=== PATIENT | male | born 1935 | race Caucasian/White ===

== ENCOUNTER 2020-01-25 06:49 | Outpatient (REF) | payer MEDICARE, SELFPAY ==
[2020-01-25 11:58] LABS: Prostate Specific Antigen 7.17 ng/mL (<0.05-4.0)
== END 2020-01-25 06:50 | disposition home or self-care (01) ==
LOC: HO.HMGCLDS 06:49
PROVIDERS: PCP Internal Medicine; Visit Provider Urology
DX: Z12.5 Encounter for screening for malignant neoplasm of prostate (principal)
CPT/HCPCS: 84153

== ENCOUNTER 2020-01-31 09:10 | Outpatient (REF) | payer MEDICARE, SELFPAY | END 2020-01-31 09:11 | disposition home or self-care (01) | LOC: HO.10HDL 09:10 | PROVIDERS: Visit Provider Internal Medicine | DX: Z13.89 Encounter for screening for other disorder (principal) ==

== ENCOUNTER 2020-02-08 06:24 | Outpatient (REF) | payer MEDICARE, SELFPAY ==
[2020-02-08 11:24] LABS: MANUAL DIFF FLAG NO
[2020-02-08 11:41] LABS: Basophils Percent Auto 0.5 % (0-2); Eosinophils Absolute Auto 0.2 X10*3/uL (0.0-0.4); Eosinophils Percent Auto 3.8 % (0-4); Hematocrit 41.9 % (42-52); Imm Gran Abs Auto 0.02 X10*3/uL (0.00-0.03); Imm Gran Pct Auto 0.3 % (0.0-0.4); Lymphocytes Absolute Auto 1.7 X10*3/uL (1.2-4.9); Lymphocytes Percent Auto 27.3 % (20-40); Mean Corpuscular HGB Conc 33.4 g/dl (31.0-36.0); Mean Corpuscular Hemoglobin 32.6 pg (27.0-33.0); Mean Corpuscular Volume 97.7 fL (80-98); Mean Platelet Volume 10.7 fL (9.4-12.4); Monocytes Absolute Auto 0.7 X10*3/uL (0.1-1.2); Monocytes Percent Auto 10.6 % (2-11); Neutrophils Absolute Auto 3.5 X10*3/uL (2.0-8.3); Neutrophils Percent Auto 57.5 % (45-73); Platelet Count 245 X10*3/uL (160-400); Red Blood Count 4.29 X10*6/uL (4.60-5.80); Red Cell Distribution Width 12.7 % (11.0-16.0); White Blood Count 6.1 X10*3/uL (4.8-10.8)
[2020-02-08 12:12] LABS: Alanine Aminotransferase 22 U/L (0-40); Alkaline Phosphatase 77 U/L (39-117); Anion Gap 14 (12-20); Aspartate Amino Transferase 24 U/L (5-37); Bilirubin Total 0.7 mg/dL (0.0-1.0); Blood Urea Nitrogen 33 mg/dL (9-16); Calcium 8.2 mg/dL (8.4-10.2); Carbon Dioxide 24 mmol/L (22-29); Chloride 109 mmol/L (96-108); Cholesterol 176 mg/dL; Estimated Glomerular Filt Rate 50; Glucose Fasting 118 mg/dL (60-99); HDL Cholesterol 64 mg/dL; LDL Cholesterol Calculated 97 mg/dl; Potassium 4.2 mmol/l (3.3-5.1); Sodium 143 mmol/L (135-145); Total Protein 6.6 g/dL (6.5-8.0); Triglycerides 76 mg/dL
[2020-02-08 12:49] LABS: Prostate Specific Antigen Scr 4.92 ng/mL (<0.05-4.0)
[2020-02-08 12:56] LABS: Creatinine Urine 106.84 mg/dL; Microalbum/Creatinine Ratio Ur 37.4 ug/mg cr
[2020-02-08 17:46] LABS: Estimated Average Glucose 120 mg/dL; Hemoglobin A1c % 5.8 %
== END 2020-02-08 06:25 | disposition home or self-care (01) ==
LOC: HO.HMGCLDS 06:24
PROVIDERS: PCP Internal Medicine; Visit Provider Internal Medicine
DX: E11.9 Type 2 diabetes mellitus without complications (principal); R97.20 Elevated prostate specific antigen [PSA]; I10 Essential (primary) hypertension; E78.00 Pure hypercholesterolemia, unspecified
CPT/HCPCS: 36415; 80053; 80061; 82043; 83036; 84153; 85025

== ENCOUNTER 2020-06-11 10:51 | Outpatient (REF) | payer MEDICARE, SELFPAY ==
[2020-06-11 13:16] LABS: Anion Gap 12 (12-20); Blood Urea Nitrogen 35 mg/dL (9-16); Calcium 8.8 mg/dL (8.4-10.2); Carbon Dioxide 26 mmol/L (22-29); Chloride 110 mmol/L (96-108); Estimated Glomerular Filt Rate 56; Glucose Random 101 mg/dL (60-115); Potassium 4.4 mmol/L (3.3-5.1); Sodium 144 mmol/L (135-145)
[2020-06-11 14:13] LABS: Estimated Average Glucose 123 mg/dL; Hemoglobin A1c % 5.9 %
== END 2020-06-11 10:52 | disposition home or self-care (01) ==
LOC: HO.10HDL 10:51
PROVIDERS: Visit Provider Internal Medicine
DX: E11.22 Type 2 diabetes mellitus with diabetic chronic kidney disease (principal); I12.9 Hypertensive chronic kidney disease with stage 1 through stage 4 chronic kidney disease, or unspecified chronic kidney disease; N18.9 Chronic kidney disease, unspecified
CPT/HCPCS: 36415; 80048; 83036

== ENCOUNTER 2020-08-12 15:38 | Outpatient (REF) | payer MEDICARE, SELFPAY ==
--- NOTE | ~2020-08-12 | XR_ITS ---
EXAMINATION: XR ABDOMEN KUB CLINICAL INDICATION: Constipation and bloating COMPARISON: None TECHNIQUE: AP view of the abdomen. FINDINGS: There is a large soft tissue lesion in the pelvis and central lower abdomen. It is uncertain whether this represents a very distended bladder or could represent a pelvic mass. There is stool seen in the colon suggestive of constipation. There are no dilated loops of bowel to suggest obstruction. There is no evidence of free air. There are degenerative changes of the lower lumbar spine and hip joints. XR/XR KUB IMPRESSION: Large pelvic lesion extending into the lower central abdomen uncertain whether this represents a very distended bladder or could represent a pelvic mass. Constipation. Findings will be communicated by the [employer] work [employer] scouting coordinator Armani Mejia.
[2020-08-12 16:34] LABS: MANUAL DIFF FLAG NO
[2020-08-12 16:41] LABS: Basophils Percent Auto 0.4 % (0-2); Eosinophils Absolute Auto 0.1 X10*3/uL (0.0-0.4); Hematocrit 39.3 % (42-52); Hemoglobin 13.2 g/dl (14.0-18.0); Imm Gran Abs Auto 0.02 X10*3/uL (0.00-0.03); Imm Gran Pct Auto 0.2 % (0.0-0.4); Lymphocytes Absolute Auto 1.2 X10*3/uL (1.2-4.9); Lymphocytes Percent Auto 11.4 % (20-40); Mean Corpuscular HGB Conc 33.6 g/dl (31.0-36.0); Mean Corpuscular Hemoglobin 32.7 pg (27.0-33.0); Mean Corpuscular Volume 97.3 fL (80-98); Mean Platelet Volume 10.4 fL (9.4-12.4); Monocytes Absolute Auto 1.3 X10*3/uL (0.1-1.2); Monocytes Percent Auto 13.2 % (2-11); Neutrophils Absolute Auto 7.5 X10*3/uL (2.0-8.3); Neutrophils Percent Auto 73.8 % (45-73); Platelet Count 206 X10*3/uL (160-400); Red Blood Count 4.04 X10*6/uL (4.60-5.80); Red Cell Distribution Width 12.9 % (11.0-16.0); White Blood Count 10.1 X10*3/uL (4.8-10.8)
[2020-08-12 17:04] LABS: Alanine Aminotransferase 16 U/L (0-40); Albumin Level 4.1 g/dL (3.5-5.0); Alkaline Phosphatase 70 U/L (39-117); Anion Gap 15 (12-20); Aspartate Amino Transferase 18 U/L (5-37); Bilirubin Total 0.9 mg/dL (0.0-1.0); Blood Urea Nitrogen 35 mg/dL (9-16); C Reactive Protein 7.42 mg/dL (< or = 0.50); Carbon Dioxide 24 mmol/L (22-29); Chloride 109 mmol/L (96-108); Estimated Glomerular Filt Rate 46; Glucose Random 155 mg/dL (60-115); Potassium 3.8 mmol/L (3.3-5.1); Sodium 144 mmol/L (135-145); Total Protein 6.8 g/dL (6.5-8.0)
== END 2020-08-12 15:39 | disposition home or self-care (01) ==
LOC: HO.LAB 15:38
PROVIDERS: PCP Internal Medicine; Visit Provider Internal Medicine
DX: K59.00 Constipation, unspecified (principal); R14.0 Abdominal distension (gaseous)
CPT/HCPCS: 36415; 74018; 80053; 85025; 86140

== ENCOUNTER → 2020-08-13 14:00 | Outpatient (BNVA) | payer MEDICARE, SELFPAY | PROVIDERS: PCP Internal Medicine | DX: R33.9 Retention of urine, unspecified (principal); C61 Malignant neoplasm of prostate | CPT/HCPCS: 51701; 51798; 99202; 99212 ==

== ENCOUNTER → 2020-08-28 12:59 | Outpatient (BNVA) | payer MEDICARE, SELFPAY | PROVIDERS: PCP Internal Medicine; Visit Provider Urology | DX: R33.9 Retention of urine, unspecified (principal) | CPT/HCPCS: 51700; 51702; 51798; 99212 ==

== ENCOUNTER 2020-09-13 08:44 | Outpatient (REF) | payer MEDICARE, SELFPAY ==
[2020-09-13 10:11] LABS: MANUAL DIFF FLAG NO
[2020-09-13 10:18] LABS: Basophils Percent Auto 0.5 % (0-2); Eosinophils Absolute Auto 0.1 X10*3/uL (0.0-0.4); Eosinophils Percent Auto 1.8 % (0-4); Hematocrit 39.6 % (42-52); Hemoglobin 13.2 g/dl (14.0-18.0); Imm Gran Abs Auto 0.03 X10*3/uL (0.00-0.03); Imm Gran Pct Auto 0.4 % (0.0-0.4); Lymphocytes Absolute Auto 1.8 X10*3/uL (1.2-4.9); Lymphocytes Percent Auto 23.2 % (20-40); Mean Corpuscular HGB Conc 33.3 g/dl (31.0-36.0); Mean Corpuscular Hemoglobin 32.6 pg (27.0-33.0); Mean Corpuscular Volume 97.8 fL (80-98); Mean Platelet Volume 10.3 fL (9.4-12.4); Monocytes Absolute Auto 0.7 X10*3/uL (0.1-1.2); Monocytes Percent Auto 8.5 % (2-11); Neutrophils Absolute Auto 5.2 X10*3/uL (2.0-8.3); Neutrophils Percent Auto 65.6 % (45-73); Platelet Count 251 X10*3/uL (160-400); Red Blood Count 4.05 X10*6/uL (4.60-5.80); Red Cell Distribution Width 12.4 % (11.0-16.0); White Blood Count 7.9 X10*3/uL (4.8-10.8)
[2020-09-13 10:35] LABS: Anion Gap 12 (12-20); Blood Urea Nitrogen 28 mg/dL (9-16); Calcium 8.4 mg/dL (8.4-10.2); Carbon Dioxide 26 mmol/L (22-29); Chloride 109 mmol/L (96-108); Estimated Glomerular Filt Rate 59; Glucose Random 90 mg/dL (60-115); Iron 93 mcg/dL (45-160); Percent Iron Saturation 30 % (15-50); Potassium 4.1 mmol/L (3.3-5.1); Sodium 143 mmol/L (135-145); Total Iron Binding Capacity 309 mcg/dL (228-428); Unsaturated Iron Binding 216 ug/dL
[2020-09-13 10:44] LABS: Estimated Average Glucose 128 mg/dL; Hemoglobin A1c % 6.1 %
== END 2020-09-13 08:45 | disposition home or self-care (01) ==
LOC: HO.10HDL 08:44
PROVIDERS: Visit Provider Internal Medicine
DX: E11.22 Type 2 diabetes mellitus with diabetic chronic kidney disease (principal); I12.9 Hypertensive chronic kidney disease with stage 1 through stage 4 chronic kidney disease, or unspecified chronic kidney disease; N18.9 Chronic kidney disease, unspecified; D64.9 Anemia, unspecified
CPT/HCPCS: 36415; 80048; 83036; 83540; 85025

== ENCOUNTER → 2020-10-04 08:57 | Outpatient (BNVA) | payer MEDICARE, SELFPAY | PROVIDERS: PCP Internal Medicine; Visit Provider Urology | DX: R33.9 Retention of urine, unspecified (principal); N31.9 Neuromuscular dysfunction of bladder, unspecified; E08.40 Diabetes mellitus due to underlying condition with diabetic neuropathy, unspecified | CPT/HCPCS: 51702; 52000; 99212 ==

== ENCOUNTER → 2020-11-08 08:46 | Outpatient (BNVA) | payer MEDICARE, SELFPAY | PROVIDERS: PCP Internal Medicine; Visit Provider Urology | DX: N31.9 Neuromuscular dysfunction of bladder, unspecified (principal); E08.40 Diabetes mellitus due to underlying condition with diabetic neuropathy, unspecified | CPT/HCPCS: 51701; 51702; 99212 ==

== ENCOUNTER → 2020-12-12 09:47 | Outpatient (BNVA) | payer MEDICARE, SELFPAY | PROVIDERS: PCP Internal Medicine; Visit Provider Urology | DX: N31.9 Neuromuscular dysfunction of bladder, unspecified (principal); E08.40 Diabetes mellitus due to underlying condition with diabetic neuropathy, unspecified | CPT/HCPCS: 51701; 51702; 99212 ==

== ENCOUNTER 2020-12-19 06:07 | Outpatient (REF) | payer MEDICARE, SELFPAY ==
[2020-12-19 11:15] LABS: MANUAL DIFF FLAG NO
[2020-12-19 11:39] LABS: Basophils Percent Auto 0.4 % (0-2); Eosinophils Absolute Auto 0.3 X10*3/uL (0.0-0.4); Eosinophils Percent Auto 4.6 % (0-4); Estimated Average Glucose 120 mg/dL; Hematocrit 41.1 % (42-52); Hemoglobin 13.8 g/dl (14.0-18.0); Hemoglobin A1c % 5.8 %; Imm Gran Abs Auto 0.02 X10*3/uL (0.00-0.03); Imm Gran Pct Auto 0.4 % (0.0-0.4); Lymphocytes Absolute Auto 1.2 X10*3/uL (1.2-4.9); Lymphocytes Percent Auto 22.8 % (20-40); Mean Corpuscular HGB Conc 33.6 g/dl (31.0-36.0); Mean Corpuscular Hemoglobin 32.3 pg (27.0-33.0); Mean Corpuscular Volume 96.3 fL (80-98); Mean Platelet Volume 10.8 fL (9.4-12.4); Monocytes Absolute Auto 0.6 X10*3/uL (0.1-1.2); Monocytes Percent Auto 10.4 % (2-11); Neutrophils Absolute Auto 3.3 X10*3/uL (2.0-8.3); Neutrophils Percent Auto 61.4 % (45-73); Platelet Count 193 X10*3/uL (160-400); Red Blood Count 4.27 X10*6/uL (4.60-5.80); Red Cell Distribution Width 12.6 % (11.0-16.0); White Blood Count 5.4 X10*3/uL (4.8-10.8)
[2020-12-19 11:58] LABS: Alanine Aminotransferase 17 U/L (0-40); Alkaline Phosphatase 84 U/L (39-117); Anion Gap 11 (12-20); Aspartate Amino Transferase 18 U/L (5-37); Bilirubin Total 0.6 mg/dL (0.0-1.0); Blood Urea Nitrogen 30 mg/dL (9-16); Calcium 8.4 mg/dL (8.4-10.2); Carbon Dioxide 24 mmol/L (22-29); Chloride 111 mmol/L (96-108); Cholesterol 157 mg/dL; Estimated Glomerular Filt Rate 53; Glucose Fasting 122 mg/dL (60-99); HDL Cholesterol 60 mg/dL; Iron 47 mcg/dL (45-160); LDL Cholesterol Calculated 86 mg/dl; Percent Iron Saturation 16 % (15-50); Potassium 4.2 mmol/L (3.3-5.1); Sodium 142 mmol/L (135-145); Total Iron Binding Capacity 294 mcg/dL (228-428); Total Protein 6.5 g/dL (6.5-8.0); Triglycerides 58 mg/dL; Unsaturated Iron Binding 247 ug/dL
[2020-12-19 12:30] LABS: Creatinine Urine 103.36 mg/dL; Microalbum/Creatinine Ratio Ur 125.7 ug/mg cr
== END 2020-12-19 06:08 | disposition home or self-care (01) ==
LOC: HO.HMGCLDS 06:07
PROVIDERS: PCP Internal Medicine; Visit Provider Internal Medicine
DX: Z12.5 Encounter for screening for malignant neoplasm of prostate (principal); E11.9 Type 2 diabetes mellitus without complications; N40.1 Benign prostatic hyperplasia with lower urinary tract symptoms; E78.00 Pure hypercholesterolemia, unspecified; I10 Essential (primary) hypertension; D64.9 Anemia, unspecified
CPT/HCPCS: 36415; 80053; 80061; 82043; 83036; 83540; 84153; 85025

== ENCOUNTER → 2021-01-14 09:50 | Outpatient (BNVA) | payer MEDICARE, SELFPAY | PROVIDERS: PCP Internal Medicine; Visit Provider Urology | DX: N31.9 Neuromuscular dysfunction of bladder, unspecified (principal); E08.40 Diabetes mellitus due to underlying condition with diabetic neuropathy, unspecified | CPT/HCPCS: 51701; 51702; 51705; 99212 ==

== ENCOUNTER → 2021-02-14 08:46 | Outpatient (BNVA) | payer MEDICARE, SELFPAY | PROVIDERS: PCP Internal Medicine; Visit Provider Urology | DX: R33.9 Retention of urine, unspecified (principal) | CPT/HCPCS: 51700; 51798 ==

== ENCOUNTER 2021-03-18 10:30 | Outpatient (REF) | payer MEDICARE, SELFPAY ==
[2021-03-18 13:46] LABS: MANUAL DIFF FLAG NO
[2021-03-18 13:56] LABS: Basophils Percent Auto 0.5 % (0-2); Eosinophils Absolute Auto 0.2 X10*3/uL (0.0-0.4); Eosinophils Percent Auto 2.9 % (0-4); Hematocrit 40.8 % (42.0-52.0); Hemoglobin 13.6 g/dl (14.0-18.0); Imm Gran Abs Auto 0.01 X10*3/uL (0.00-0.03); Imm Gran Pct Auto 0.2 % (0.0-0.4); Lymphocytes Absolute Auto 1.5 X10*3/uL (1.2-4.9); Lymphocytes Percent Auto 25.6 % (20-40); Mean Corpuscular HGB Conc 33.3 g/dl (31.0-36.0); Mean Corpuscular Hemoglobin 32.2 pg (27.0-33.0); Mean Corpuscular Volume 96.5 fL (80.0-98.0); Mean Platelet Volume 10.5 fL (9.4-12.4); Monocytes Absolute Auto 0.7 X10*3/uL (0.1-1.2); Monocytes Percent Auto 11.1 % (2-11); Neutrophils Absolute Auto 3.5 x10*3/uL (2.0-8.3); Neutrophils Percent Auto 59.7 % (45-73); Platelet Count 250 X10*3/uL (160-400); Red Blood Count 4.23 X10*6/uL (4.60-5.80); Red Cell Distribution Width 12.6 % (11.0-16.0); White Blood Count 5.9 X10*3/uL (4.8-10.8)
[2021-03-18 14:04] LABS: Estimated Average Glucose 120 mg/dL; Hemoglobin A1c % 5.8 %
[2021-03-18 14:18] LABS: Anion Gap 12 (12-20); Blood Urea Nitrogen 26 mg/dL (9-16); Calcium 8.8 mg/dL (8.4-10.2); Carbon Dioxide 25 mmol/L (22-29); Chloride 109 mmol/L (96-108); Estimated Glomerular Filt Rate 58; Glucose Random 99 mg/dL (60-115); Potassium 4.1 mmol/L (3.3-5.1); Sodium 142 mmol/L (135-145)
== END 2021-03-18 10:31 | disposition home or self-care (01) ==
LOC: HO.10HDL 10:30
PROVIDERS: Visit Provider Internal Medicine
DX: I12.9 Hypertensive chronic kidney disease with stage 1 through stage 4 chronic kidney disease, or unspecified chronic kidney disease (principal); N18.9 Chronic kidney disease, unspecified; E11.22 Type 2 diabetes mellitus with diabetic chronic kidney disease
CPT/HCPCS: 36415; 80048; 83036; 85025

== ENCOUNTER → 2021-08-07 09:00 | Outpatient (BNVA) | payer MEDICARE, SELFPAY | PROVIDERS: PCP Internal Medicine; Visit Provider Urology | DX: R33.9 Retention of urine, unspecified (principal); E08.40 Diabetes mellitus due to underlying condition with diabetic neuropathy, unspecified | CPT/HCPCS: 99212 ==

== ENCOUNTER 2021-08-20 17:48 | Outpatient (REF) | payer MEDICARE, SELFPAY | END 2021-08-20 17:49 | disposition home or self-care (01) | LOC: HO.LNP 17:48 | PROVIDERS: Visit Provider Internal Medicine | DX: L02.214 Cutaneous abscess of groin (principal) | CPT/HCPCS: 87071; 87147; 87205 ==

== ENCOUNTER 2021-11-13 11:44 | Outpatient (REF) | payer MEDICARE, SELFPAY ==
[2021-11-13 13:41] LABS: MANUAL DIFF FLAG NO
[2021-11-13 13:43] LABS: Basophils Percent Auto 0.3 % (0-2); Eosinophils Absolute Auto 0.2 X10*3/uL (0.0-0.4); Eosinophils Percent Auto 3.3 % (0-4); Hematocrit 39.3 % (42.0-52.0); Hemoglobin 13.1 g/dl (14.0-18.0); Imm Gran Abs Auto 0.01 X10*3/uL (0.00-0.03); Imm Gran Pct Auto 0.2 % (0.0-0.4); Lymphocytes Absolute Auto 1.3 X10*3/uL (1.2-4.9); Lymphocytes Percent Auto 23.3 % (20-40); Mean Corpuscular HGB Conc 33.3 g/dl (31.0-36.0); Mean Corpuscular Hemoglobin 31.9 pg (27.0-33.0); Mean Corpuscular Volume 95.6 fL (80.0-98.0); Mean Platelet Volume 10.8 fL (9.4-12.4); Monocytes Absolute Auto 0.6 X10*3/uL (0.1-1.2); Monocytes Percent Auto 10.5 % (2-11); Neutrophils Absolute Auto 3.6 x10*3/uL (2.0-8.3); Neutrophils Percent Auto 62.4 % (45-73); Platelet Count 216 X10*3/uL (160-400); Red Blood Count 4.11 X10*6/uL (4.60-5.80); Red Cell Distribution Width 12.2 % (11.0-16.0); White Blood Count 5.7 X10*3/uL (4.8-10.8)
[2021-11-13 13:59] LABS: Alanine Aminotransferase 16 U/L (0-40); Albumin Level 4.1 g/dL (3.5-5.0); Alkaline Phosphatase 80 U/L (39-117); Anion Gap 14 (12-20); Aspartate Amino Transferase 19 U/L (5-37); Bilirubin Total 0.5 mg/dL (0.0-1.0); Blood Urea Nitrogen 33 mg/dL (9-16); Calcium 8.7 mg/dL (8.4-10.2); Carbon Dioxide 24 mmol/L (22-29); Chloride 109 mmol/L (96-108); Estimated Glomerular Filt Rate 47; Glucose Random 97 mg/dL (60-115); Iron 118 mcg/dL (45-160); Percent Iron Saturation 36 % (15-50); Potassium 4.4 mmol/L (3.3-5.1); Sodium 143 mmol/L (135-145); Total Iron Binding Capacity 328 mcg/dL (228-428); Total Protein 6.9 g/dL (6.5-8.0); Unsaturated Iron Binding 210 ug/dL
[2021-11-13 14:02] LABS: Estimated Average Glucose 117 mg/dL; Hemoglobin A1c % 5.7 %
== END 2021-11-13 11:45 | disposition home or self-care (01) ==
LOC: HO.10HDL 11:44
PROVIDERS: Visit Provider Internal Medicine
DX: I12.9 Hypertensive chronic kidney disease with stage 1 through stage 4 chronic kidney disease, or unspecified chronic kidney disease (principal); N18.9 Chronic kidney disease, unspecified; E11.22 Type 2 diabetes mellitus with diabetic chronic kidney disease; D64.9 Anemia, unspecified
CPT/HCPCS: 36415; 80053; 83036; 83540; 85025

== ENCOUNTER 2022-01-29 06:12 | Outpatient (REF) | payer MEDICARE, SELFPAY ==
[2022-01-29 11:12] LABS: MANUAL DIFF FLAG NO
[2022-01-29 11:31] LABS: Alanine Aminotransferase 18 U/L (0-40); Albumin Level 4.2 g/dL (3.5-5.0); Alkaline Phosphatase 76 U/L (39-117); Anion Gap 14 (12-20); Aspartate Amino Transferase 20 U/L (5-37); Bilirubin Total 0.7 mg/dL (0.0-1.0); Blood Urea Nitrogen 36 mg/dL (9-16); Calcium 8.8 mg/dL (8.4-10.2); Carbon Dioxide 21 mmol/L (22-29); Chloride 112 mmol/L (96-108); Estimated Glomerular Filt Rate 39; Glucose Random 129 mg/dL (60-115); Iron 134 mcg/dL (45-160); Percent Iron Saturation 41 % (15-50); Potassium 4.2 mmol/L (3.3-5.1); Sodium 143 mmol/L (135-145); Total Iron Binding Capacity 328 mcg/dL (228-428); Total Protein 6.8 g/dL (6.5-8.0); Unsaturated Iron Binding 194 ug/dL
[2022-01-29 11:43] LABS: Basophils Percent Auto 0.5 % (0-2); Eosinophils Absolute Auto 0.2 X10*3/uL (0.0-0.4); Eosinophils Percent Auto 4.2 % (0-4); Hematocrit 41.4 % (42.0-52.0); Imm Gran Abs Auto 0.01 X10*3/uL (0.00-0.03); Imm Gran Pct Auto 0.2 % (0.0-0.4); Lymphocytes Absolute Auto 1.6 X10*3/uL (1.2-4.9); Lymphocytes Percent Auto 27.3 % (20-40); Mean Corpuscular HGB Conc 33.8 g/dl (31.0-36.0); Mean Corpuscular Hemoglobin 32.2 pg (27.0-33.0); Mean Corpuscular Volume 95.2 fL (80.0-98.0); Mean Platelet Volume 10.8 fL (9.4-12.4); Monocytes Absolute Auto 0.6 X10*3/uL (0.1-1.2); Monocytes Percent Auto 10.3 % (2-11); Neutrophils Absolute Auto 3.3 x10*3/uL (2.0-8.3); Neutrophils Percent Auto 57.5 % (45-73); Platelet Count 198 X10*3/uL (160-400); Red Blood Count 4.35 X10*6/uL (4.60-5.80); Red Cell Distribution Width 12.6 % (11.0-16.0); White Blood Count 5.8 X10*3/uL (4.8-10.8)
== END 2022-01-29 06:13 | disposition home or self-care (01) ==
LOC: HO.HMGCLDS 06:12
PROVIDERS: PCP Internal Medicine; Visit Provider Internal Medicine
DX: I12.9 Hypertensive chronic kidney disease with stage 1 through stage 4 chronic kidney disease, or unspecified chronic kidney disease (principal); N18.9 Chronic kidney disease, unspecified; D64.9 Anemia, unspecified
CPT/HCPCS: 36415; 80053; 83540; 85025

== ENCOUNTER → 2022-02-05 09:03 | Outpatient (BNVA) | payer MEDICARE, SELFPAY | PROVIDERS: PCP Internal Medicine; Visit Provider Urology | DX: N31.9 Neuromuscular dysfunction of bladder, unspecified (principal); E08.40 Diabetes mellitus due to underlying condition with diabetic neuropathy, unspecified | CPT/HCPCS: 51798; 99212 ==

== ENCOUNTER 2022-02-10 06:57 | Outpatient (REF) | payer MEDICARE, SELFPAY ==
[2022-02-10 12:20] LABS: Anion Gap 15 (12-20); Blood Urea Nitrogen 30 mg/dL (9-16); Calcium 8.5 mg/dL (8.4-10.2); Carbon Dioxide 25 mmol/L (22-29); Chloride 107 mmol/L (96-108); Estimated Glomerular Filt Rate 46; Glucose Random 219 mg/dL (60-115); Potassium 3.9 mmol/L (3.3-5.1); Sodium 143 mmol/L (135-145)
== END 2022-02-10 06:58 | disposition home or self-care (01) ==
LOC: HO.HMGCLDS 06:57
PROVIDERS: PCP Internal Medicine; Visit Provider Internal Medicine
DX: N18.9 Chronic kidney disease, unspecified (principal)
CPT/HCPCS: 36415; 80048

== ENCOUNTER 2022-03-12 06:01 | Outpatient (REF) | payer MEDICARE, SELFPAY ==
[2022-03-12 11:23] LABS: MANUAL DIFF FLAG NO
[2022-03-12 11:41] LABS: Basophils Percent Auto 0.7 % (0-2); Eosinophils Absolute Auto 0.3 X10*3/uL (0.0-0.4); Eosinophils Percent Auto 4.8 % (0-4); Hematocrit 42.6 % (42.0-52.0); Hemoglobin 13.9 g/dl (14.0-18.0); Imm Gran Abs Auto 0.01 X10*3/uL (0.00-0.03); Imm Gran Pct Auto 0.2 % (0.0-0.4); Lymphocytes Absolute Auto 1.4 X10*3/uL (1.2-4.9); Lymphocytes Percent Auto 24.4 % (20-40); Mean Corpuscular HGB Conc 32.6 g/dl (31.0-36.0); Mean Corpuscular Hemoglobin 31.7 pg (27.0-33.0); Mean Corpuscular Volume 97.3 fL (80.0-98.0); Mean Platelet Volume 10.5 fL (9.4-12.4); Monocytes Absolute Auto 0.6 X10*3/uL (0.1-1.2); Monocytes Percent Auto 10.1 % (2-11); Neutrophils Absolute Auto 3.5 x10*3/uL (2.0-8.3); Neutrophils Percent Auto 59.8 % (45-73); Platelet Count 241 X10*3/uL (160-400); Red Blood Count 4.38 X10*6/uL (4.60-5.80); Red Cell Distribution Width 12.5 % (11.0-16.0); White Blood Count 5.8 X10*3/uL (4.8-10.8)
[2022-03-12 12:07] LABS: Alanine Aminotransferase 24 U/L (0-40); Alkaline Phosphatase 78 U/L (39-117); Anion Gap 12 (12-20); Aspartate Amino Transferase 24 U/L (5-37); Bilirubin Total 0.7 mg/dL (0.0-1.0); Blood Urea Nitrogen 30 mg/dL (9-16); Calcium 8.8 mg/dL (8.4-10.2); Carbon Dioxide 26 mmol/L (22-29); Chloride 110 mmol/L (96-108); Cholesterol 168 mg/dL; Estimated Glomerular Filt Rate 41; Glucose Fasting 150 mg/dL (60-99); HDL Cholesterol 55 mg/dL; LDL Cholesterol Calculated 100 mg/dl; Potassium 4.6 mmol/L (3.3-5.1); Sodium 143 mmol/L (135-145); Total Protein 6.5 g/dL (6.5-8.0); Triglycerides 67 mg/dL
[2022-03-12 12:46] LABS: Estimated Average Glucose 120 mg/dL; Hemoglobin A1c % 5.8 %
[2022-03-12 16:04] LABS: Creatinine Urine 103.05 mg/dL; Microalbum/Creatinine Ratio Ur 91.2 ug/mg cr
== END 2022-03-12 06:02 | disposition home or self-care (01) ==
LOC: HO.HMGCLDS 06:01
PROVIDERS: PCP Internal Medicine; Visit Provider Internal Medicine
DX: E11.9 Type 2 diabetes mellitus without complications (principal); I10 Essential (primary) hypertension; E78.00 Pure hypercholesterolemia, unspecified
CPT/HCPCS: 36415; 80053; 80061; 82043; 83036; 85025

== ENCOUNTER 2022-05-14 11:04 | Outpatient (REF) | payer MEDICARE, SELFPAY ==
[2022-05-14 13:59] LABS: Anion Gap 13 (12-20); Blood Urea Nitrogen 30 mg/dL (9-16); Calcium 8.6 mg/dL (8.4-10.2); Carbon Dioxide 25 mmol/L (22-29); Chloride 108 mmol/L (96-108); Estimated Glomerular Filt Rate 51; Glucose Random 104 mg/dL (60-115); Potassium 4.3 mmol/L (3.3-5.1); Sodium 142 mmol/L (135-145)
[2022-05-14 14:14] LABS: Estimated Average Glucose 123 mg/dL; Hemoglobin A1C 151.6046 umol/L; Hemoglobin A1c % 5.9 %
== END 2022-05-14 11:05 | disposition home or self-care (01) ==
LOC: HO.10HDL 11:04
PROVIDERS: Visit Provider Internal Medicine
DX: R73.03 Prediabetes (principal); I12.9 Hypertensive chronic kidney disease with stage 1 through stage 4 chronic kidney disease, or unspecified chronic kidney disease; N18.9 Chronic kidney disease, unspecified
CPT/HCPCS: 36415; 80048; 83036

== ENCOUNTER 2022-08-13 10:41 | Outpatient (REF) | payer MEDICARE, SELFPAY ==
[2022-08-13 13:32] LABS: MANUAL DIFF FLAG NO
[2022-08-13 13:38] LABS: Basophils Percent Auto 0.6 % (0-2); Eosinophils Absolute Auto 0.2 X10*3/uL (0.0-0.4); Eosinophils Percent Auto 3.1 % (0-4); Hematocrit 39.1 % (42.0-52.0); Hemoglobin 13.4 g/dl (14.0-18.0); Imm Gran Abs Auto 0.01 X10*3/uL (0.00-0.03); Imm Gran Pct Auto 0.2 % (0.0-0.4); Lymphocytes Absolute Auto 1.3 X10*3/uL (1.2-4.9); Lymphocytes Percent Auto 25.7 % (20-40); Mean Corpuscular HGB Conc 34.3 g/dl (31.0-36.0); Mean Corpuscular Hemoglobin 32.7 pg (27.0-33.0); Mean Corpuscular Volume 95.4 fL (80.0-98.0); Mean Platelet Volume 10.7 fL (9.4-12.4); Monocytes Absolute Auto 0.6 X10*3/uL (0.1-1.2); Monocytes Percent Auto 12.3 % (2-11); Neutrophils Percent Auto 58.1 % (45-73); Platelet Count 216 X10*3/uL (160-400); Red Cell Distribution Width 12.5 % (11.0-16.0); White Blood Count 5.1 X10*3/uL (4.8-10.8)
[2022-08-13 13:56] LABS: Estimated Average Glucose 120 mg/dL; Hemoglobin A1c % 5.8 %
[2022-08-13 14:10] LABS: Anion Gap 9 (12-20); Blood Urea Nitrogen 35 mg/dL (9-16); Calcium 8.7 mg/dL (8.4-10.2); Carbon Dioxide 24 mmol/L (22-29); Chloride 114 mmol/L (96-108); Estimated Glomerular Filt Rate 53; Glucose Random 99 mg/dL (60-115); Potassium 4.3 mmol/L (3.3-5.1); Sodium 143 mmol/L (135-145)
== END 2022-08-13 10:42 | disposition home or self-care (01) ==
LOC: HO.10HDL 10:41
PROVIDERS: Visit Provider Internal Medicine
DX: R73.03 Prediabetes (principal); I12.9 Hypertensive chronic kidney disease with stage 1 through stage 4 chronic kidney disease, or unspecified chronic kidney disease; N18.9 Chronic kidney disease, unspecified
CPT/HCPCS: 36415; 80048; 83036; 85025

== ENCOUNTER → 2022-08-20 08:35 | Outpatient (BNVA) | payer MEDICARE, SELFPAY | PROVIDERS: PCP Internal Medicine; Visit Provider Urology | DX: N31.9 Neuromuscular dysfunction of bladder, unspecified (principal); E08.40 Diabetes mellitus due to underlying condition with diabetic neuropathy, unspecified | CPT/HCPCS: 51798; 99212 ==

== ENCOUNTER 2023-02-19 07:59 | Outpatient (AMB) | payer MEDICARE, SELFPAY ==
--- NOTE | 2023-02-19 08:26 | A.OFFVIS_ITS ---
Intake Intake Visit Reasons: 6m follow up Intake Note: Patient is Present for Telephone Follow Up For Urology Med: Methenamine, Doxazosin Antibiotic Allergy: None Blood Thinner: none Allergies No Known Allergies Allergy (Verified 08/20/22 08:39) Medication List - Last Reconciled 02/19/23 by Shmuel Friedman MD ascorbic acid (vitamin C) 1 g PO DAILY 90 days doxazosin 2 mg PO DAILY lisinopril 10 mg PO DAILY metformin mg PO methenamine hippurate 1 g PO DAILY 90 days pravastatin 40 mg PO DAILY HPI HPI Comments History of Present Illness Details Yobany is a pleasant male. He is a patient with Dr. Key. 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 Remain on prostate medication Has been taught clean intermittent catheterization - on suppression with methenamine and vi tamin-C [facility] Medical History Nocturia Diabetes mellitus Elevated PSA Prostate cancer Surgical History History of prostate biopsy Review of Systems Const All systems reviewed & are unremarkable except as noted in HPI and below Reports no additional complaints Resp Reports no additional complaints GI Reports no additional complaints Reports as per HPI Musc Reports no additional complaints Physical Exam Telemedicine evaluation Appropriate responses Regular breathing rate and rhythm HEENT Head: Yes normal to inspection Ears: hearing grossly normal bilaterally Eyes General: appearance normal, both eyes and all related structures Neck Neck: Yes normal visual inspection Chest Chest palpation & inspection: normal inspection of the chest Resp Effort & Inspection: normal respiratory effort and able to speak in complete sentences Assessment & Plan Assessment & Plan (1) BPH w urinary obs/LUTS: Code(s): N40.1 - Benign prostatic hyperplasia with lower urinary tract symptoms; N13.8 - Other obstructive and reflux uropathy (2) Hypotonic neurogenic bladder: Code(s): N31.9 - Neuromuscular dysfunction of bladder, unspecified Plan Six month follow-up Medications: Refilled methenamine hippurate 1 g PO DAILY 90 tabs 1RF 90 days N39.0 - Urinary tract infection, site not specified, R33.9 - Retention of urine, unspecified ascorbic acid (vitamin C) 1 g PO DAILY 90 tabs 1RF 90 days Patient Instructions: Imaging studies, laboratory and physical exam results were discussed and re viewed in detail. No major barriers to patient understanding were identified. An opportunity to ask questions regarding the treatment plan was provided. All questions were answered. The patient expressed understanding and agreement with the above treatment plan. The patient is aware they should contact our office by phone for worsening of their current condition or the appearance of new urologic symptoms. Compliance is encouraged with any medications and followup testing that is ordered. It is a privilege to participate in the urologic care of your patient. If you have any questions or concerns regarding treatment for the above conditions, or other urologic issues, please do not hesitate to contact me. The office telephone contact is [phone]. This note is constructed using voice recognition software. While every effort has been made to ensure accuracy design assistant errors may have been included. Yours sincerely, Dr Shmuel Friedman MD, DIPIK[facility] - Urology Providers of Expert, Compassionate Care for the Genitourinary System Telehealth Telehealth Location of provider rendering services: practice address Location of patient: address on file Patient Identification confirmed using: Name, : Yes Telehealth method: video Patient verbally consented to treatment: Yes Patient verbally consented to billing insurance company: Yes Patient informed of any privacy concerns related to visit: Yes Coding Level of Care Code Tele Est Pt Level 3 (77548) Diagnoses BPH w urinary obs/LUTS N40.1; N13.8 Hypotonic neurogenic bladder N31.9
== END 2023-02-19 09:34 | disposition home or self-care (01) ==
LOC: HO.HUSH 07:59
PROVIDERS: PCP Internal Medicine; Visit Provider Urology
DX: N40.1 Benign prostatic hyperplasia with lower urinary tract symptoms (principal); N13.8 Other obstructive and reflux uropathy; N31.9 Neuromuscular dysfunction of bladder, unspecified
CPT/HCPCS: 99213

== ENCOUNTER → 2023-02-19 07:59 | Outpatient (BNVA) | payer MEDICARE, SELFPAY | PROVIDERS: PCP Internal Medicine; Visit Provider Urology ==

== ENCOUNTER 2023-03-04 10:44 | Outpatient (REF) | payer MEDICARE, SELFPAY ==
[2023-03-04 13:18] LABS: MANUAL DIFF FLAG NO
[2023-03-04 13:27] LABS: Basophils Percent Auto 0.8 % (0-2); Eosinophils Absolute Auto 0.1 X10*3/uL (0.0-0.4); Eosinophils Percent Auto 2.4 % (0-4); Hematocrit 39.9 % (42.0-52.0); Hemoglobin 13.2 g/dl (14.0-18.0); Imm Gran Abs Auto 0.01 X10*3/uL (0.00-0.03); Imm Gran Pct Auto 0.2 % (0.0-0.4); Lymphocytes Absolute Auto 1.2 X10*3/uL (1.2-4.9); Lymphocytes Percent Auto 23.7 % (20-40); Mean Corpuscular HGB Conc 33.1 g/dl (31.0-36.0); Mean Corpuscular Hemoglobin 32.3 pg (27.0-33.0); Mean Corpuscular Volume 97.6 fL (80.0-98.0); Mean Platelet Volume 10.6 fL (9.4-12.4); Monocytes Absolute Auto 0.6 X10*3/uL (0.1-1.2); Monocytes Percent Auto 11.1 % (2-11); Neutrophils Absolute Auto 3.1 x10*3/uL (2.0-8.3); Neutrophils Percent Auto 61.8 % (45-73); Platelet Count 207 X10*3/uL (160-400); Red Blood Count 4.09 X10*6/uL (4.60-5.80); Red Cell Distribution Width 12.8 % (11.0-16.0); White Blood Count 5.1 X10*3/uL (4.8-10.8)
[2023-03-04 13:43] LABS: Estimated Average Glucose 117 mg/dL; Hemoglobin A1c % 5.7 % (<6.0)
[2023-03-04 14:04] LABS: Alanine Aminotransferase 23 U/L (0-40); Albumin Level 4.2 g/dL (3.5-5.0); Alkaline Phosphatase 76 U/L (39-117); Anion Gap 10 (12-20); Aspartate Amino Transferase 23 U/L (5-37); Bilirubin Total 0.6 mg/dL (0.0-1.0); Blood Urea Nitrogen 35 mg/dL (9-16); Carbon Dioxide 25 mmol/L (22-29); Chloride 112 mmol/L (96-108); Cholesterol 152 mg/dL (<200); Estimated Glomerular Filt Rate 57; Glucose Random 125 mg/dL (60-115); Potassium 3.9 mmol/L (3.3-5.1); Sodium 143 mmol/L (135-145); Total Protein 7.1 g/dL (6.5-8.0)
== END 2023-03-04 10:45 | disposition home or self-care (01) ==
LOC: HO.10HDL 10:44
PROVIDERS: Visit Provider Internal Medicine
DX: I12.9 Hypertensive chronic kidney disease with stage 1 through stage 4 chronic kidney disease, or unspecified chronic kidney disease (principal); N18.9 Chronic kidney disease, unspecified; R73.03 Prediabetes
CPT/HCPCS: 36415; 80053; 82465; 83036; 85025

== ENCOUNTER 2023-09-09 08:36 | Outpatient (REF) | payer MEDICARE, SELFPAY ==
[2023-09-09 10:22] LABS: MANUAL DIFF FLAG NO
[2023-09-09 10:40] LABS: Basophils Percent Auto 0.5 % (0-2); Eosinophils Absolute Auto 0.2 X10*3/uL (0.0-0.4); Eosinophils Percent Auto 3.2 % (0-4); Hematocrit 38.6 % (42.0-52.0); Hemoglobin 13.2 g/dl (14.0-18.0); Imm Gran Abs Auto 0.01 X10*3/uL (0.00-0.03); Imm Gran Pct Auto 0.2 % (0.0-0.4); Lymphocytes Absolute Auto 1.6 X10*3/uL (1.2-4.9); Lymphocytes Percent Auto 28.4 % (20-40); Mean Corpuscular HGB Conc 34.2 g/dl (31.0-36.0); Mean Corpuscular Hemoglobin 33.4 pg (27.0-33.0); Mean Corpuscular Volume 97.7 fL (80.0-98.0); Mean Platelet Volume 10.9 fL (9.4-12.4); Monocytes Absolute Auto 0.7 X10*3/uL (0.1-1.2); Monocytes Percent Auto 11.5 % (2-11); Neutrophils Absolute Auto 3.2 x10*3/uL (2.0-8.3); Neutrophils Percent Auto 56.2 % (45-73); Platelet Count 202 X10*3/uL (160-400); Red Blood Count 3.95 X10*6/uL (4.60-5.80); Red Cell Distribution Width 12.6 % (11.0-16.0); White Blood Count 5.6 X10*3/uL (4.8-10.8)
[2023-09-09 10:55] LABS: Anion Gap 12 (12-20); Blood Urea Nitrogen 42 mg/dL (9-16); Calcium 8.9 mg/dL (8.4-10.2); Carbon Dioxide 23 mmol/L (22-29); Chloride 113 mmol/L (96-108); Estimated Glomerular Filt Rate 43; Glucose Random 97 mg/dL (60-115); Iron 103 mcg/dL (45-160); Percent Iron Saturation 35 % (15-50); Potassium 4.4 mmol/L (3.3-5.1); Sodium 144 mmol/L (135-145); Total Iron Binding Capacity 293 mcg/dL (228-428); Unsaturated Iron Binding 190 ug/dL
[2023-09-09 10:57] LABS: Estimated Average Glucose 114 mg/dL; Hemoglobin A1c % 5.6 % (<6.0)
== END 2023-09-09 08:37 | disposition home or self-care (01) ==
LOC: HO.HMGCLDS 08:36
PROVIDERS: PCP Internal Medicine; Visit Provider Internal Medicine
DX: I12.9 Hypertensive chronic kidney disease with stage 1 through stage 4 chronic kidney disease, or unspecified chronic kidney disease (principal); E11.22 Type 2 diabetes mellitus with diabetic chronic kidney disease; N18.9 Chronic kidney disease, unspecified
CPT/HCPCS: 36415; 80048; 83036; 83540; 85025

== ENCOUNTER 2023-09-14 10:09 | Outpatient (AMB) | payer MEDICARE, SELFPAY ==
--- NOTE | 2023-09-14 10:13 | MHC.OFFVIS ---
Intake Visit Reasons: 6M PVR Intake Note: Patient is Present for PVR/ Urology Med: Methenamine, Vitamin C Antibiotic Allergy:None Blood Thinner:None Last PVR: 224 Todays PVR: 143ml Allergies No Known Allergies Allergy (Verified 08/20/22 08:39) Medication List - Last Reconciled 09/14/23 by Shmuel Friedman MD ascorbic acid (vitamin C) 1 g PO DAILY 90 days doxazosin 2 mg PO DAILY lisinopril 10 mg PO DAILY metformin mg PO methenamine hippurate 1 g PO DAILY 90 days pravastatin 40 mg PO DAILY HPI Comments Details: Yobany is a pleasant male. He is a patient with Dr. Key. 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 Remain on prostate medication Has been taught clean intermittent catheterization - on suppression with methenamine and vitamin-C PFSH Medical History Nocturia Diabetes mellitus Elevated PSA Prostate cancer Surgical History History of prostate biopsy Review of Systems Const Denies chills and Denies fever(s) Card Reports no additional complaints and Denies syncope Resp Denies cough GI Denies abdominal pain and Denies heartburn Reports as per HPI and Denies change in libido Neuro Denies syncope Psych Denies change in libido Endo Denies change in libido Physical Exam Const General: cooperative, healthy appearing, comfortable and no acute distress Orientation/consciousness: patient oriented x3 HEENT Face and sinus: Yes normal facial exam Mouth: moist mucous membranes Neck Neck: Yes normal visual inspection, Yes full ROM and Yes trachea midline Chest Chest palpation & inspection: normal inspection of the chest Resp Effort & Inspection: normal respiratory effort, able to speak in complete sentences and no respiratory distress GI Inspection: Yes normal to inspection Back/Spine/Pelvis Cervical Spine: normal cervical lordosis Thoracic/Lumbar Spine: thoracic and lumbar spine normal to inspection Skin General skin exam: no rashes or lesions noted Neuro General: patient oriented x3, gait normal, tone normal and moves all extremities Extrem General: Yes normal to inspection and Yes capillary refill normal Office Procedures Post Void Residual Post Residual Void Post Void Residual (PVR): 143 [id number] Void Residual by ultrasound Assessment & Plan Assessment & Plan (1) Hypotonic neurogenic bladder: Code(s): N31.9 - Neuromuscular dysfunction of bladder, unspecified Category: Medical (2) Diabetic neuropathy associated with diabetes mellitus due to underlying condition: Code(s): E08.40 - Diabetes mellitus due to underlying condition with diabetic neuropathy, unspecified Category: Medical Plan Six-month follow-up tele Orders: Orders AMB Post Void Residual by ultrasound Today N31.9 - Neuromuscular dysfunction of bladder, unspecified Patient Instructions: Imaging studies, laboratory and physical exam results were discussed and reviewed in detail. No major barriers to patient understanding were identified. An opportunity to ask questions regarding the treatment plan was provided. All questions were answered. The patient expressed understanding and agreement with the above treatment plan. The patient is aware they should contact our office by phone for worsening of their current condition or the appearance of new urologic symptoms. Compliance is encouraged with any medications and followup testing that is ordered. It is a privilege to participate in the urologic care of your patient. If you have any questions or concerns regarding treatment for the above conditions, or other urologic issues, please do not hesitate to contact me. The office telephone contact is [phone]. This note is constructed using voice recognition software. While every effort has been made to ensure accuracy tenant relations coordinator errors may have been included. Yours sincerely, Dr Shmuel Friedman MD, [facility] - Urology Providers of Expert, Compassionate Care for the Genitourinary System Coding Level of Care Code Est Pt Level 3 (39381) Diagnoses Hypotonic neurogenic bladder N31.9 Diabetic neuropathy associated with diabetes mellitus due to underlying condition E08.40 CPT Codes Post Residual Void - PVR CPT Code: 98555-Lopz Void Residual by ultrasound ([id number])
== END 2023-09-14 10:47 | disposition home or self-care (01) ==
PROVIDERS: PCP Internal Medicine; Visit Provider Urology
DX: N31.9 Neuromuscular dysfunction of bladder, unspecified (principal); E08.40 Diabetes mellitus due to underlying condition with diabetic neuropathy, unspecified
CPT/HCPCS: 99213

== ENCOUNTER → 2023-09-14 10:09 | Outpatient (BNVA) | payer MEDICARE, SELFPAY | PROVIDERS: PCP Internal Medicine; Visit Provider Urology | DX: N31.9 Neuromuscular dysfunction of bladder, unspecified (principal); E08.40 Diabetes mellitus due to underlying condition with diabetic neuropathy, unspecified | CPT/HCPCS: 51798; 99212 ==

== ENCOUNTER 2024-02-24 06:03 | Outpatient (REF) | payer MEDICARE, SELFPAY ==
[2024-02-24 10:00] LABS: MANUAL DIFF FLAG NO
[2024-02-24 10:06] LABS: Basophils Percent Auto 0.3 % (0-2); Eosinophils Absolute Auto 0.3 X10*3/uL (0.0-0.4); Eosinophils Percent Auto 5.1 % (0-4); Hemoglobin 13.3 g/dl (14.0-18.0); Imm Gran Abs Auto 0.02 X10*3/uL (0.00-0.03); Imm Gran Pct Auto 0.3 % (0.0-0.4); Lymphocytes Absolute Auto 1.3 X10*3/uL (1.2-4.9); Lymphocytes Percent Auto 19.8 % (20-40); Mean Corpuscular HGB Conc 34.1 g/dl (31.0-36.0); Mean Corpuscular Hemoglobin 33.2 pg (27.0-33.0); Mean Corpuscular Volume 97.3 fL (80.0-98.0); Mean Platelet Volume 11.2 fL (9.4-12.4); Monocytes Absolute Auto 0.7 X10*3/uL (0.1-1.2); Monocytes Percent Auto 10.6 % (2-11); Neutrophils Absolute Auto 4.1 x10*3/uL (2.0-8.3); Neutrophils Percent Auto 63.9 % (45-73); Platelet Count 197 X10*3/uL (160-400); Red Blood Count 4.01 X10*6/uL (4.60-5.80); Red Cell Distribution Width 13.1 % (11.0-16.0); White Blood Count 6.4 X10*3/uL (4.8-10.8)
[2024-02-24 10:10] LABS: Estimated Average Glucose 120 mg/dL; Hemoglobin A1C 133.4087 umol/L; Hemoglobin A1c % 5.8 % (<6.0); Total Hemoglobin (HGBA1C) 3385.0265 umol/L
[2024-02-24 10:14] LABS: Appearance Urine Cloudy; Color Urine Yellow; Glucose Urine UA Negative (Negative); Leukocyte Esterase Urine Large (3+) (Negative); Nitrite Urine Positive (Negative); Specific Gravity - Urine 1.015 (1.005-1.025); UMIC TRIGGER UA YES; Urine Blood Small (1+) (Negative); Urine Ketones Negative (Negative); Urine Protein Trace mg/dL (Neg-Trace)
[2024-02-24 10:25] LABS: Alanine Aminotransferase 19 U/L (0-40); Alkaline Phosphatase 74 U/L (39-117); Anion Gap 11 (12-20); Aspartate Amino Transferase 29 U/L (5-37); Bilirubin Total 0.6 mg/dL (0.0-1.0); Blood Urea Nitrogen 31 mg/dL (9-16); Calcium 8.8 mg/dL (8.4-10.2); Carbon Dioxide 24 mmol/L (22-29); Chloride 110 mmol/L (96-108); Cholesterol 140 mg/dL (<200); Estimated Glomerular Filt Rate 42; Glucose Fasting 155 mg/dL (60-99); HDL Cholesterol 50 mg/dL (>40); LDL Cholesterol Calculated 77 mg/dL (<100); Potassium 4.1 mmol/L (3.3-5.1); Sodium 141 mmol/L (135-145); Total Protein 6.7 g/dL (6.5-8.0); Triglycerides 65 mg/dL (<150)
[2024-02-24 10:33] LABS: Bacteria Urine 4+ (None Seen); Hyaline Casts Urine 0-2 /LPF (0-2); Squamous Epithelial Cell Urine 0-2 /HPF (0-2); WBC Urine >50 /HPF (0-5)
[2024-02-24 10:39] LABS: Creatinine Urine 91.66 mg/dL
[2024-02-24 10:42] LABS: Prostate Specific Antigen 8.18 ng/mL (<0.05-4.0)
== END 2024-02-24 06:04 | disposition home or self-care (01) ==
LOC: HO.HMGCLDS 06:03
PROVIDERS: PCP Internal Medicine; Visit Provider Internal Medicine
DX: I12.9 Hypertensive chronic kidney disease with stage 1 through stage 4 chronic kidney disease, or unspecified chronic kidney disease (principal); N18.9 Chronic kidney disease, unspecified; E78.00 Pure hypercholesterolemia, unspecified; E11.9 Type 2 diabetes mellitus without complications; Z12.5 Encounter for screening for malignant neoplasm of prostate
CPT/HCPCS: 36415; 80053; 80061; 81001; 82043; 82570; 83036; 84153; 85025

== ENCOUNTER 2024-03-17 08:51 | Outpatient (AMB) | payer MEDICARE, SELFPAY ==
--- NOTE | 2024-03-17 08:51 | A.OFFVIS_ITS ---
Intake Visit Reasons: 6m follow up Intake Note: Patient is present for 6M F/U Urology Medication:VITMAIN C,METHENAMINE HIPPURATE Antibiotic Allergy:NONE Blood Thinner:NONE C2 Tactical Analysis Technician Required: No Allergies No Known Allergies Allergy (Verified 03/17/24 08:52) HPI Comments Details: Yobany is a pleasant male. He is a patient with Dr. Key. He is seen flowing urologic condition - urinary retention - urinary retention with nonfunctional bladder Telemedicine Evaluation 15 min Consultation [employer] [place] Video Six-month review Continues with CIC 4 times per day No evidence of bladder function Will expect him to remain on CIC indefinitely for the foreseeable future Continue suppression with vitamin-C and methenamine with good effect. Methenamine to be written 30 day prescription per insurance. 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 Remain on prostate medication Has been taught clean intermittent catheterization - on suppression with methenamine and vitamin-C PFS Medical History Nocturia Diabetes mellitus Elevated PSA Prostate cancer Surgical History History of prostate biopsy Review of Systems Const All systems reviewed & are unremarkable except as noted in HPI and below Reports no additional complaints Resp Reports no additional complaints GI Reports no additional complaints Reports as per HPI Musc Reports no additional complaints Physical Exam Telemedicine evaluation Appropriate responses Regular breathing rate and rhythm HEENT Head: Yes normal to inspection Ears: hearing grossly normal bilaterally Eyes General: appearance normal, both eyes and all related structures Neck Neck: Yes normal visual inspection Chest Chest palpation & inspection: normal inspection of the chest Resp Effort & Inspection: normal respiratory effort and able to speak in complete sentences Telehealth Telehealth Telehealth Platform: [employer] Location of provider rendering services: practice address Location of patient: address on file Patient Identification confirmed using: Name, : Yes Telehealth method: video Patient verbally consented to treatment: Yes Patient verbally consented to billing insurance company: Yes Patient informed of any privacy concerns related to visit: Yes Minutes spent on Phone/Video with Pt.: 15 Assessment & Plan Assessment & Plan (1) BPH w urinary obs/LUTS: Code(s): N40.1 - Benign prostatic hyperplasia with lower urinary tract symptoms; N13.8 - Other obstructive and reflux uropathy Category: Medical (2) Hypotonic neurogenic bladder: Code(s): N31.9 - Neuromuscular dysfunction of bladder, unspecified Category: Medical Plan Six-month follow-up PSA Orders: Orders Prostate Specific Antigen 6 Months N13.8 - Other obstructive and reflux uropathy, N40.1 - Benign prostatic hyperplasia with lower urinary tract symptoms Medications: Changed From methenamine hippurate 1 g PO DAILY 90 days 90 tabs 1RF N39.0 - Urinary tract infection, site not specified, R33.9 - Retention of urine, unspecified To methenamine hippurate 1 g PO DAILY 30 days 30 tabs 5RF N39.0 - Urinary tract infection, site not specified, R33.9 - Retention of urine, unspecified Refilled ascorbic acid (vitamin C) 1 g PO DAILY 90 days 90 tabs 1RF N31.9 - Neuromuscular dysfunction of bladder, unspecified On Hold ciprofloxacin HCl Hold Comment: Doctor's Order 500 mg PO ONCE 1 tab 0RF R33.9 - Retention of urine, unspecified Patient Instructions: Imaging studies, laboratory and physical exam results were discussed and reviewed in detail. No major barriers to patient understanding were identified. An opportunity to ask questions regarding the treatment plan was provided. All questions were answered. The patient expressed understanding and agreement with the above treatment plan. The patient is aware they should contact our office by phone for worsening of their current condition or the appearance of new urologic symptoms. Compliance is encouraged with any medications and followup testing that is ordered. It is a privilege to participate in the urologic care of your patient. If you have any questions or concerns regarding treatment for the above conditions, or other urologic issues, please do not hesitate to contact me. The office telephone contact is [phone]. This note is constructed using voice recognition software. While every effort has been made to ensure accuracy director of clinical education errors may have been included. Yours sincerely, Dr Shmuel Friedman MD, [facility] - Urology Providers of Expert, Compassionate Care for the Genitourinary System Coding Level of Care Code Tele Est Pt Level 3 (61564) Diagnoses BPH w urinary obs/LUTS N40.1; N13.8 Hypotonic neurogenic bladder N31.9
--- OUTSIDE RECORDS SUMMARY | 2024-03-17 08:56 | XMS_ITS | Continuity of Care Document ---
Author Name [facility] Organization [facility] Care Team Providers Care Doorperson Name Role Phone [facility] Unavailable Unavailable Problems Combined list of problems from Department of Defense and Veterans Affairs facilities. It does not include entries that were removed or entered in error. Problem Status Onset Date Problem Type Date of Resolution Comments Source Essential hypertension Active Condition [facility] [place] [facility] [place] [facility] Hyperlipidemia Active Condition [facility] [place] [facility] Diagnosis: ICD-10-CM Z46.1 Encounter for fitting and adjustment of hearing aid Active Diagnosis [facility] [place] [facility] Medications Combined list of outpatient medications from Department of Defense and Veterans Affairs facilities.Medications provided include 1) outpatient medications from the last 15 months, and 2) patient-reported medications. Medication Details Route Status Patient Instructions Prescription Expires Prescription Number Last Dispense Date Ordering Provider Order Date Order Qty Source ASPIRIN 81MG TAB,EC TAKE ONE TABLET BY MOUTH DAILY ORAL ACTIVE [facility]INDSEY [facility] [place] DOXAZOSIN MESYLATE 1MG TAB TAKE ONE TABLET BY MOUTH AT BEDTIME ORAL ACTIVE SONALIWALINDSEY HURTADO 2011 [facility] [place] [facility] [facility] FLUTICASONE PROPIONATE 50MCG/SPRAY SOLN,NASAL, 16GM INSTILL 1 SPRAY INTO EACH NOSTRIL TWICE DAILY NASAL ACTIVE LINDSEY [facility]CHARYA [facility] LISINOPRIL 10MG TAB TAKE ONE TABLET BY MOUTH DAILY ORAL ACTIVE SONALIWALINDSEY HURTADO 2011 [facility] [place] [facility] [facility] METFORMIN HCL 500MG TAB TAKE ONE-HALF TABLET BY MOUTH DAILY ORAL ACTIVE LINDSEY ACHARYA 2011 [facility] [place] [facility] MULTIVITAMI NS W/MINERALS TAB TAKE ONE TABLET BY MOUTH DAILY ORAL ACTIVE VANWAGNER ,LINDSEY F 2011 [facility] [place] [facility] [facility] PRAVASTATIN NA 40MG TAB TAKE ONE TABLET BY MOUTH DAILY ORAL ACTIVE LINDSEY ACHARYA [facility] [place] [facility] [facility] SODIUM CHLORIDE 0.65% SOLN,NASAL SPRAY INSTILL 2 SPRAYS INTO EACH NOSTRIL TWICE DAILY NASAL ACTIVE LINDSEY ACHARYA 2011 [facility] [place] Allergies, Adverse Reactions, Alerts Combined list of allergies from Department of Defense and Veterans Affairs facilities. It does not include entries that were removed or entered in error. Substance Category Reaction Severity Reaction type Status Date Reported Comments Source LORATADINE Propensity to adverse reactions to drug (finding) Drowsy active 2 [facility] [place] [facility] Immunizations Combined list of available immunizations from the Department of Defense and Veterans Affairs facilities. Immunization Series Date Given Administered By Site Reaction Lot Number CVX Code Drug Hearing Screen Coordinator Status Comments Source INFLUENZA, SEASONAL, INJECTABLE 2016 141 complet ed [facility] [place] DTAP 2016 20 complet ed Site: Left Deltoid [facility] [place] PNEUMOCOCCAL CONJUGATE PCV 13 2016 133 complet ed [facility] [place] FLU,3 YRS (HISTORICAL) 2015 88 complet ed [facility] FLU,3 YRS (HISTORICAL) 2014 88 complet ed [facility] ZOSTER (SHINGLES) (HISTORICAL) 2013 121 complet ed Proximal Left Arm [facility] [place] FLU,3 YRS (HISTORICAL) 2013 88 complet ed [facility] TD(ADULT) UNSPECIFIED FORMULATION 2011 139 complet ed Site: Left Deltoid [facility] [place] FLU,3 YRS (HISTORICAL) 2010 88 complet ed stated [facility] [place] PNEUMOCOCCAL, UNSPECIFIED FORMULATION 2009 109 complet ed stated [facility] [place] Encounters Combined list of: 1) Encounters from [facility] facilities going back up to thelast 18 months. 2) Encounters from the Department of [facility] facilities going back up to 280 months. Location Location Details Encounter Type Encounter Number Reason For Visit Attending Provider ADM Date DC Date Status Disposition Source [facility] Outpatient Encounter [id number] 09/23 [facility] HEARING AID FITTING/CH ECKING [id number] Diagnos is: ICD-10- CM Z46.1 Encount er for fitting and adjustm ent of hearing aid<br/ > Lizzy ZAPATA 10/29 [facility] Social History Combined list of available smoking, tobacco, and other social history from Department of [facility] and [facility] facilities. Social History Type Response Date Comment Sourc e Tobacco smoking status NHIS LIFETIME NON-TOBACCO USER 04/23/2017 [facility] History of tobacco use LIFETIME NON-TOBACCO USER 04/27/2016 [facility] History of tobacco use LIFETIME NON-TOBACCO USER 04/09/2015 . [facility] History of tobacco use LIFETIME NON-TOBACCO USER 05/07/2011 [facility] Advance Directives List of completed, amended, or rescinded Advance Directives on record at [facility] facilities. An actual copy of the Directive is not included. Date Advance Directive Provider Source 06/19/2011 ADVANCE DIRECTIVE JESSICA MORRELL [facility]
== END 2024-03-17 09:17 | disposition home or self-care (01) ==
LOC: HO.HUSH 08:51
PROVIDERS: PCP Internal Medicine; Visit Provider Urology
DX: N40.1 Benign prostatic hyperplasia with lower urinary tract symptoms (principal); N13.8 Other obstructive and reflux uropathy; N31.9 Neuromuscular dysfunction of bladder, unspecified
CPT/HCPCS: 99213

== ENCOUNTER 2024-08-25 15:04 | Outpatient (AMB) | payer MEDICARE, SELFPAY ==
--- OUTSIDE RECORDS SUMMARY | 2024-08-25 15:07 | XMS_ITS | Continuity of Care Document ---
Author Name [facility] Organization [facility] Care Team Providers Care Wind Commissioning Technician Name Role Phone [facility] Unavailable Unavailable Problems Combined list of problems from Department of Defense and Veterans Affairs facilities. It does not include entries that were removed or entered in error. Problem Status Onset Date Problem Type Date of Resolution Comments Source Essential hypertension Active Condition [facility] [place] [facility] HE[facility] Active Condition [facility] [place] [facility] Hyperlipidemia [facility] Medications Combined list of outpatient medications from Department of [facility] and Veterans Affairs facilities.Medications provided include 1) outpatient medications from the last 15 months, and 2) patient-reported medications. Medication Details Route Status Patient Instructions Prescription Expires Prescription Number Last Dispense Date Ordering Provider Order Date Order Qty Source ASPIRIN 81MG TAB,EC TAKE ONE TABLET BY MOUTH DAILY ORAL ACTIVE LINDSEY ACHARYA [facility] DOXAZOSIN MESYLATE 1MG TAB TAKE ONE TABLET BY MOUTH AT BEDTIME ORAL ACTIVE SONALIWALINDSEY JANSEN 2011 [facility] FLUTICASONE PROPIONATE 50MCG/SPRAY SOLN,NASAL, 16GM INSTILL 1 SPRAY INTO EACH NOSTRIL TWICE DAILY NASAL ACTIVE LINDSEY ACHARYA 2011 [facility] LISINOPRIL 10MG TAB TAKE ONE TABLET BY MOUTH DAILY ORAL ACTIVE WILLOW SPRINGSWAGNLINDSEY JANSEN 2011 [facility] METFORMIN HCL 500MG TAB TAKE ONE-HALF TABLET BY MOUTH DAILY ORAL ACTIVE HARMEETGNLINDSEY JANSEN 2011 [facility] MULTIVITAMI NS W/MINERALS TAB TAKE ONE TABLET BY MOUTH DAILY ORAL ACTIVE LINDSEY ACHARYA 2011 [facility] [place] PRAVASTATIN NA 40MG TAB [...] Site Reaction Lot Number CVX Code Drug Mattress Inspector Status Comments Source INFLUENZA, SEASONAL, INJECTABLE 2016 [...] stated [facility] [place] Social History Combined list of available smoking, tobacco, and other social history from Department of Defense and Veterans Affairs facilities. Social History Type Response Date Comment Sourc e Tobacco smoking status NHIS LIFETIME NON-TOBACCO USER 04/23/2017 [facility] History of tobacco use LIFETIME NON-TOBACCO USER 04/27/2016 [facility] History of tobacco use LIFETIME NON-TOBACCO USER 04/09/2015 . [facility] History of tobacco use LIFETIME NON-TOBACCO USER 05/07/2011 [facility] Advance Directives List of completed, amended, or rescinded Advance Directives on record at Department of [facility] facilities. An actual copy of the Directive is not included. Date Advance Directive Provider Source 06/19/2011 ADVANCE DIRECTIVE JESSICA MORRELL [facility]
--- NOTE | 2024-08-25 15:17 | A.OFFPC_ITS ---
Vital Signs 08/25/24 15:19 Height 5 ft 4 in Weight 148 lb BMI 25.4 BP 140/78 H Blood Pressure Location Lt brachial Position Sitting Pulse 90 Pulse Source Pulse Oximeter Temp 98.4 F Temp Source Axillary Pulse Oximetry (%) 98 Oxygen Delivery Method Room Air Intake Visit Reasons: Routine Center Lead Consultant Required: No Accompanied by: Self / Same As Patient Allergies No Known Allergies Allergy (Verified 08/25/24 15:18) Tobacco use date assessed: 08/25/24 Fall risk assessment: 1 Fall in past year Last assessed Fall Risk: 08/25/24 Dental Screening Dental Screen Date: 08/25/24 Did you have a dental visit in the last 12 months?: No Did you have a dental problem in the last 6 months where you did not have access to dental care?: No HPI HPI Comments History of Present Illness Details The patient is a 89 year old male with a past medical history of hypertension, hyperlipidemia, DM, neuropathy, anxiety, anemia presenting for follow up CV: on lisinopril, pravastatin, asa. Follows with urology - urinary retention with nonfunctional bladder. CIC. Patient was hospitalized in May. He had incidental findings of a liver lesion and kidney lesion ROS CONSTITUTIONAL: Denies weight loss, fever and chills. HEENT: Denies changes in vision and hearing. RESPIRATORY: Denies SOB and cough. CV: Denies palpitations and CP GI: Denies abdominal pain, nausea, vomiting and diarrhea. : Denies dysuria and urinary frequency. MSK: Denies new myalgia and joint pain. SKIN: Denies rash and pruritus. NEUROLOGICAL: Denies headache PSYCHIATRIC: Denies recent changes in mood. PHYSICAL EXAM: GENERAL: Alert and oriented x 3. NAD EYES: EOMI. Anicteric. HENT: Moist mucous membranes. No scleral icterus. No cervical lymphadenopathy. LUNGS: Clear to auscultation bilaterally. CARDIOVASCULAR: Regular rate and rhythm. No murmur. No JVD. ABDOMEN: Soft, non-tender +bs EXTREMITIES: No edema. Non-tender. SKIN: No rashes or lesions. Warm. NEUROLOGIC: No focal neurological deficits. CN II-XII grossly intact PSYCHIATRIC: Cooperative. Appropriate mood and affect [facility] Medical History Nocturia Diabetes mellitus Elevated PSA Prostate cancer Surgical History History of prostate biopsy Family History (Updated 08/25/24 @ 15:26 by Yaz Fernandez MA) Mother No problems noted. Father No problems noted. Social History Housing: House Patient Tobacco Use Status: Never used Tobacco e-Cigarette/Vaping Use: Never Used service: No Current occupational status: retired Current occupational exposures/hazards: No Cognitive needs: No Hearing needs: Yes (bilateral hearing aids) Vision needs: No Questionnaire PHQ-9 Over the last 2 weeks, how often have you been bothered by any of the following problems? 1. Little interest or pleasure in doing things: not at all 2. Feeling down, depressed, or hopeless: not at all 3. Trouble falling or staying asleep, or sleeping too much: not at all 4. Feeling tired or having little energy: not at all 5. Poor appetite or overeating: not at all 6. Feeling bad about yourself - or that you are a failure or have let yourself or your family down: not at all 7. Trouble concentrating on things, such as reading the newspaper or watching television: not at all 8. Moving or speaking so slowly that other people could have noticed. Or the opposite - being so fidgety or restless that you have been moving around a lot more than usual: not at all 9. Thoughts that you would be better off or of hurting yourself in some way: not at all Total score: 0 Depression Screening Interpretation: Negative Depression Screening Done: Yes 42893 - PHQ-9 Billing: Yes Source: Developed by Drs. Richard Oliva, Diana Valerio, Josh Suárez and colleagues, with an educational valerie from [employer]. Thrive Questionnaire Date Thrive assessed: 08/25/24 I am a: Patient Within the past 12 months, did the food you bought not last and you didn't have the money to get more?: Never true Within the past 12 months, did you worry whether your food would run out before you got money to buy more?: Never true Do you have trouble paying for medicines?: No Do you have trouble getting transportation to medical appointments?: No Do you have trouble paying your heating and electricity bill?: No Do you have trouble taking care of your child, family member or friend?: No Do you have trouble with day-to-day activities such as bathing, preparing meals, shopping, managing finances, etc.?: No Are you currently unemployed and looking for a job?: No Are you interested in more education?: No THRIVE Score: 0 AUDIT C Alcohol Use Questionnaire (AUDIT-C) 1. How often do you have a drink containing alcohol?: Never 3. How often do you have six or more drinks on one occasion?: Never Total Score: 0 SOLIS-7 AMB Questionnaire SOLIS-7 Date SOLIS - 7 assessed: 08/25/24 Feeling nervous, anxious, or on edge: 0 = Not at all Not being able to stop or control worryin = Not at all Worrying too much about different things: 0 = Not at all Trouble relaxin = Not at all Being so restless that it is hard to sit still: 0 = Not at all Becoming easily annoyed or irritable: 0 = Not at all Feeling afraid as if something awful might happen: 0 = Not at all Total SOLIS-7 score (0-4 normal; 5-9 mild; 10-14 moderate; 15-21 severe): 0 Source: Developed by Drs. Richard Oliva, Diana Valerio, Josh Suárez and colleagues, with an educational valerie from [employer]. Physical exam (Primary Care) Vital Signs: Last Vital Signs Temp 98.4 F 08/25/24 15:19 Pulse 90 08/25/24 15:19 BP 140/78 H 08/25/24 15:19 Pulse Ox 98 08/25/24 15:19 Oxygen Delivery Method Room Air 08/25/24 15:19 BMI result Body Mass Index 25.4 Tobacco/Smoking Status: Tobacco use Status Tobacco use date assessed 08/25/24 08/25/24 15:29 Patient Tobacco Use Status Never used Tobacco 08/25/24 15:29 e-Cigarette/Vaping Use Never Used 08/25/24 15:29 PHQ-9: PHQ-9 Score PHQ-9: Total score 0 08/27/24 17:31 Depression Screening Interpretation: Negative Thrive Assessment: Date of Thrive Assessment Date Thrive assessed 08/25/24 08/25/24 15:29 Coding Level of Care Code New Pt Level 4 (56507) Diagnoses Hyperlipidemia, unspecified hyperlipidemia type E78.5 Hyperlipidemia type: unspecified Primary hypertension I10 Hypertension type: primary hypertension Liver lesion K76.9 Other diabetic neurological complication associated with diabetes mellitus due to underlying condition E08.49 Diabetes mellitus complication detail: with other neurological complication Additional Codes PHQ-9 - 47610 - PHQ-9 Billing: Yes ([id number]) Assessment & Plan Assessment & Plan (1) Hyperlipidemia: Code(s): E78.5 - Hyperlipidemia, unspecified Category: Medical Qualifiers: Hyperlipidemia type: unspecified Qualified Code(s): E78.5 - Hyperlipidemia, unspecified (2) Hypertension: Code(s): I10 - Essential (primary) hypertension Category: Medical Qualifiers: Hypertension type: primary hypertension Qualified Code(s): I10 - Essential (primary) hypertension (3) Liver lesion: Code(s): K76.9 - Liver disease, unspecified Category: Medical (4) Diabetic neuropathy associated with diabetes mellitus due to underlying condition: Code(s): E08.40 - Diabetes mellitus due to underlying condition with diabetic neuropathy, unspecified Category: Medical Qualifiers: Diabetes mellitus complication detail: with other neurological comp lication Qualified Code(s): E08.49 - Diabetes mellitus due to underlying condition with other diabetic neurological complication Plan 89 year old male to establish care Past medical, surgical, social reviewed Labs reviewed CT chest 05/30 MRI abd for liver lesion Orders: Orders Complete Blood Count Auto Diff 3 Months E08.40 - Diabetes mellitus due to underlying condition with diabetic neuropathy, unspecified, E78.5 - Hyperli pidemia, unspecified, I10 - Essential (primary) hypertension Comprehensive Met. Panel 3 Months E08.40 - Diabetes mellitus due to underlying condition with diabetic neuropathy, unspecified, E78.5 - Hyperlipidemia, unspecified, I10 - Essential (primary) hypertension Hemoglobin A1c 3 Months E08.40 - Diabetes mellitus due to underlying condition with diabetic neuropathy, unspecified, E78.5 - Hyperlipidemia, unspecified, I10 - Essential (primary) hypertension CT chest wo IV con 9 Months R91.8 - Other nonspecific abnormal finding of lung field MR abdomen wo con 08/25/24 K76.9 - Liver disease, unspecified, N28.9 - Disorder of kidney and ureter, unspecified Lipid Panel 3 Months E08.40 - Diabetes mellitus due to underlying condition with diabetic neuropathy, unspecified, E78.5 - Hyperlipidemia, unspecified, I10 - Essential (primary) hypertension
[2024-08-25 15:19] VITALS: BP 140/78; PULSE 90; TEMP 36.9; O2SAT 98; BMI 25.4
== END 2024-08-25 16:00 | disposition home or self-care (01) ==
LOC: HO.HMCHD 15:05
PROVIDERS: PCP Internal Medicine; Visit Provider Internal Medicine
DX: E78.5 Hyperlipidemia, unspecified (principal); I10 Essential (primary) hypertension; K76.9 Liver disease, unspecified; E08.49 Diabetes mellitus due to underlying condition with other diabetic neurological complication

== ENCOUNTER → 2024-08-25 15:04 | Outpatient (BNVA) | payer MEDICARE, SELFPAY | PROVIDERS: PCP Internal Medicine; Visit Provider Internal Medicine | DX: E78.5 Hyperlipidemia, unspecified (principal); I10 Essential (primary) hypertension; E11.40 Type 2 diabetes mellitus with diabetic neuropathy, unspecified; E11.49 Type 2 diabetes mellitus with other diabetic neurological complication; K76.9 Liver disease, unspecified; N28.9 Disorder of kidney and ureter, unspecified | CPT/HCPCS: 96127; 99202 ==

== ENCOUNTER 2024-08-31 06:02 | Outpatient (REF) | payer MEDICARE, SELFPAY ==
[2024-08-31 11:21] LABS: Prostate Specific Antigen 8.07 ng/mL (<0.05-4.0)
== END 2024-08-31 06:03 | disposition home or self-care (01) ==
LOC: HO.HMGCLDS 06:02
PROVIDERS: PCP Internal Medicine; Visit Provider Urology
DX: N40.1 Benign prostatic hyperplasia with lower urinary tract symptoms (principal); N13.8 Other obstructive and reflux uropathy; Z12.5 Encounter for screening for malignant neoplasm of prostate
CPT/HCPCS: 36415; 84153

== ENCOUNTER 2024-09-14 08:46 | Outpatient (AMB) | payer MEDICARE, SELFPAY ==
--- NOTE | 2024-09-14 08:55 | A.OFFVIS_ITS ---
Intake Visit Reasons: 6m f/u PSA Intake Note: Patient is present for 6M/PSA Urology Medication:VITAMIN C Antibiotic Allergy:NONE Blood Thinner:ASPIRIN Nylon Hot Wire Cutter Required: No Allergies No Known Allergies Allergy (Verified 09/14/24 08:58) HPI Comments Details: Yobany is a pleasant male. He is a patient with Dr. Key. He is seen flowing urologic condition - urinary retention - urinary retention with nonfunctional bladder Six-month review Continues with CIC 4 times per day No evidence of bladder function Will expect him to remain on CIC indefinitely for the foreseeable future Continue suppression with vitamin-C and methenamine with good effect. Methenamine to be written 30 day prescription per insurance. 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 Father No problems noted. Social History Housing: House Patient Tobacco Use Status: Never used Tobacco e-Cigarette/Vaping Use: Never Used service: No Current occupational status: retired Current occupational exposures/hazards: No Cognitive needs: No Hearing needs: Yes (bilateral hearing aids) Vision needs: No Review of Systems Const Denies chills and Denies fever(s) Card Reports no additional complaints and Denies syncope Resp Denies cough GI Denies abdominal pain and Denies heartburn Reports as per HPI and Denies change in libido Neuro Denies syncope Psych Denies change in libido Endo Denies change in libido Physical Exam Const General: cooperative, healthy appearing, comfortable and no acute distress Orientation/consciousness: patient oriented x3 HEENT Face and sinus: Yes normal facial exam Mouth: moist mucous membranes Neck Neck: Yes normal visual inspection, Yes full ROM and Yes trachea midline Chest Chest palpation & inspection: normal inspection of the chest Resp Effort & Inspection: normal respiratory effort, able to speak in complete sentences and no respiratory distress GI Inspection: Yes normal to inspection Back/Spine/Pelvis Cervical Spine: normal cervical lordosis Thoracic/Lumbar Spine: thoracic and lumbar spine normal to inspection Skin General skin exam: no rashes or lesions noted Neuro General: patient oriented x3, gait normal, tone normal and moves all extremities Extrem General: Yes normal to inspection and Yes capillary refill normal Assessment & Plan Assessment & Plan (1) BPH w urinary obs/LUTS: Code(s): N40.1 - Benign prostatic hyperplasia with lower urinary tract symptoms; N13.8 - Other obstructive and reflux uropathy Category: Medical (2) Hypotonic neurogenic bladder: Code(s): N31.9 - Neuromuscular dysfunction of bladder, unspecified Category: Medical Plan 1. Dehydration Maintain hydration with three to four glasses of water daily. 2. Elevated Prostate-Specific Antigen (Psa) PSA level stable at 8; no intervention required. 3. Use Of Urinary Catheter Continue current catheter management; no changes needed. Discussion Notes I discussed with the patient the importance of maintaining hydration to prevent dehydration, which previously led to hospitalization. We reviewed the stability of his PSA levels and agreed that no changes in management are necessary at this time. The patient will continue with his current catheter management and will contact us if any issues arise. Patient Instructions - Drink three to four glasses of water daily to stay hydrated. - Continue taking vitamin C and methenamine as prescribed. - Monitor for any urinary issues and contact the clinic if problems occur. Orders: Orders Prostate Specific Antigen 6 Months N13.8 - Other obstructive and reflux uropathy, N40.1 - Benign prostatic hyperplasia with lower urinary tract symptoms Patient Instructions: This note is constructed using voice recognition software. While every effort has been made to ensure accuracy community health nursing director errors may have been included. Imaging studies, laboratory and physical exam results were discussed and reviewed in detail. No major barriers to patient understanding were identified. An opportunity to ask questions regarding the treatment plan was provided. All questions were answered. The patient expressed understanding and agreement with the above treatment plan. The patient is aware they should contact our office by phone for worsening of their current condition or the appearance of new urologic symptoms. Compliance is encouraged with any medications and followup testing that is ordered. It is a privilege to participate in the urologic care of your patient. If you have any questions or concerns regarding treatment for the above conditions, or other urologic issues, please do not hesitate to contact me. The office telephone contact is [phone]. Sincerely, Dr Shmuel Friedman MD, [facility] - Urology Compassionate Specialist Care for the Genitourinary System Coding Level of Care Code Est Pt Level 3 (28019) Complex EM visit Add On G2211 Diagnoses BPH w urinary obs/LUTS N40.1; N13.8 Hypotonic neurogenic bladder N31.9
== END 2024-09-14 09:19 | disposition home or self-care (01) ==
LOC: HO.HUSH 08:47
PROVIDERS: PCP Internal Medicine; Visit Provider Urology
DX: N40.1 Benign prostatic hyperplasia with lower urinary tract symptoms (principal); N13.8 Other obstructive and reflux uropathy; N31.9 Neuromuscular dysfunction of bladder, unspecified
CPT/HCPCS: 99213; G2211

== ENCOUNTER → 2024-09-14 08:46 | Outpatient (BNVA) | payer MEDICARE, SELFPAY | PROVIDERS: PCP Internal Medicine; Visit Provider Urology | DX: N40.1 Benign prostatic hyperplasia with lower urinary tract symptoms (principal); N13.8 Other obstructive and reflux uropathy; N31.9 Neuromuscular dysfunction of bladder, unspecified | CPT/HCPCS: 99212 ==

== ENCOUNTER 2024-12-08 08:44 | Outpatient (AMB) | payer MEDICARE, SELFPAY ==
--- NOTE | 2024-12-08 08:47 | A.OFFPC_ITS ---
Vital Signs 12/08/24 08:53 Height 5 ft 4 in Weight 147 lb BMI 25.2 BP 180/82 H Blood Pressure Location Lt brachial Position Sitting Respiration 18 Pulse 88 Pulse Source Pulse Oximeter Temp 97.4 F Temp Source Temporal Artery Scan Pulse Oximetry (%) 97 Oxygen Delivery Method Room Air Intake Visit Reasons: 4 Month F/U Motor Overhauler Required: No Accompanied by: Self / Same As Patient Allergies No Known Allergies Allergy (Verified 12/08/24 08:48) Tobacco use date assessed: 08/25/24 Fall risk assessment: No Falls in past year Last assessed Fall Risk: 12/08/24 Dental Screening Dental Screen Date: 08/25/24 HPI HPI Comments History of Present Illness Details The patient is an 89-year-old male presenting with a routine follow-up for the management of essential hypertension and hyperlipidemia. The patient has a history of elevated blood pressure readings, with a consistent track record of blood pressure around 140/80 mmHg during previous visits with his former provider, Dr. Johnson. During today's visit, the blood pressure recorded is significantly higher at 180/100 mmHg. The patient reports not feeling any different despite the elevated readings and denies experiencing any symptoms typically associated with high blood pressure, such as headaches or chest pain. Regarding hyperlipidemia, the patient has a history of high cholesterol levels, which is being managed as part of his regular medical care routine. 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 He has been consistent with this routine for over 17 years. The patient is otherwise health- conscious and maintains an active lifestyle, which supports his overall well- being. Medical History: - Essential Hypertension - Hyperlipidemia Medications: - Lisinopril 10 mg daily for the managem ent of hypertension Social: - The patient is retired and stays activ e by volunteering twice a week at [facility] - Lives alone but has family nearby - Engages in regular physical exercise d aily, walking one to two miles - Enjoys assisting others and remaining socially engaged [facility] Medical History Nocturia Diabetes mellitus Elevated PSA Prostate cancer Surgical History History of prostate biopsy Family History (Updated 08/25/24 @ 15:26 by Yaz Fernandez MA) Mother No problems noted. Father No problems noted. Social History Housing: House Patient Tobacco Use Status: Never used Tobacco e-Cigarette/Vaping Use: Never Used service: Yes Current occupational status: retired Current occupational exposures/hazards: No Cognitive needs: No Hearing needs: Yes (bilateral hearing aids) Vision needs: No Questionnaire Thrive Questionnaire Date Thrive assessed: 08/25/24 AUDIT C Alcohol Use Questionnaire (AUDIT-C) 1. How often do you have a drink containing alcohol?: Monthly or less 2. How many drinks containing alcohol do you have on a typical day when you are drinking?: 1 or 2 3. How often do you have six or more drinks on one occasion?: Never Total Score: 1 SOLIS-7 AMB Questionnaire SOLIS-7 Date SOLIS - 7 assessed: 08/25/24 Source: Developed by Drs. Richard Oliva, Diana Valerio, Josh Suárez and colleagues, with an educational valerie from [employer]. Review of Systems Const Details: - Cardiovascular: Denies chest pain, palpitations - Respiratory: Denies shortness of breath - Neurological: Denies headaches, weakness - Gastrointestinal: Denies nausea, vomiting, diarrhea - Musculoskeletal: Denies joint pain - Auditory: Denies hearing difficulty - General: Denies feeling lightheaded or unwell All systems reviewed & are unremarkable except as noted in HPI and below Physical exam (Primary Care) Vital Signs: Last Vital Signs Temp 97.4 F 12/08/24 08:53 Pulse 88 12/08/24 08:53 Resp 18 12/08/24 08:53 BP 180/82 H 12/08/24 08:53 Pulse Ox 97 12/08/24 08:53 Oxygen Delivery Method Room Air 12/08/24 08:53 BMI result Body Mass Index 25.2 Tobacco/Smoking Status: Tobacco use Status Tobacco use date assessed 08/25/24 12/08/24 08:56 Patient Tobacco Use Status Never used Tobacco 12/08/24 08:56 e-Cigarette/Vaping Use Never Used 12/08/24 08:56 Thrive Assessment: Date of Thrive Assessment Date Thrive assessed 08/25/24 12/08/24 08:56 Const Other: General: +Alert and oriented, Well nourished, No acute distress. Eye: Pupils are equal, round and reactive to light, Intact accommodation, Extraocular movements are intact, Normal conjunctiva, Vision unchanged. HENT: Normocephalic, Atraumatic, Tympanic membranes are clear, Normal hearing, Oral mucosa is moist, No pharyngeal erythema, Ear canals patent. Respiratory: Lungs CTA bilaterally, No wheeze, Respirations are non-labored. Cardiovascular: Regular rate, Regular rhythm, S1 auscultated, S2 auscultated, No murmur, Good pulses equal in all extremities, Normal peripheral perfusion, No edema. Gastrointestinal: Soft, Non-tender, Non-distended, Normal bowel sounds, No organomegaly. Musculoskeletal: Normal range of motion, Normal strength, No tenderness, No swelling, No deformity, Normal gait. Integumentary: Warm, Dry, [place], Intact. Neurologic: Alert, Oriented, Normal sensory, Normal motor function, No focal defects, Cranial Nerves II-XII are grossly intact, Normal deep tendon reflexes. Psychiatric: Cooperative, Appropriate mood & affect, Normal judgment. Coding Level of Care Code Est Pt Level 4 (11909) Complex EM visit Add On G2211 Diagnoses Primary hypertension I10 Hypertension type: primary hypertension Hyperlipidemia, unspecified hyperlipidemia type E78.5 Hyperlipidemia type: unspecified Liver lesion K76.9 Assessment & Plan Assessment & Plan (1) Hypertension: Comment: - Blood pressure today is significantly elevated at 180/100 mmHg. - Plan to purchase a digital blood pressure cuff for home monitoring. - Continue with current dose of lisinopril 10 mg for one week. - Scheduled a follow-up phone appointment after one week of home monitoring (discussed the same with daughter) Code(s): I10 - Essential (primary) hypertension Category: Medical Qualifiers: Hypertension type: primary hypertension Qualified Code(s): I10 - Essential (primary) hypertension (2) Hyperlipidemia: Comment: - Monitor adherence to lifestyle recommendations for cholesterol management. - Plan to review lipid profile results at next routine check-up. Code(s): E78.5 - Hyperlipidemia, unspecified Category: Medical Qualifiers: Hyperlipidemia type: unspecified Qualified Code(s): E78.5 - Hyperlipidemia, unspecified (3) Liver lesion: Comment: Had a discussion with patient's daughter about liver mass that was seen on imaging previously and plan for further evaluation however patient's daughter emphasized that she would not like any further investigation about the same given patient's age and not wanting to put him through any further intensive investigations. Code(s): K76.9 - Liver disease, unspecified Category: Medical Plan During today's visit, I discussed with the patient the significantly elevated bl ood pressure readings recorded. Considering his age, I am hesitant to increase the dose of lisinopril without confirming if this elevation is consistent at home or a case of white coat hypertension. I advised the patient to obtain a blood pressure cuff for home monitoring over the next week and agreed to schedule a follow-up phone consultation to review these readings. For hyperlipidemia, the patient is advised to continue current lifestyle interventions and we discussed the future review of his lipid profile during routine check-ups. We also specifically discussed the non-urgent need for prev iously planned imaging for a liver mass (discussed with daughter), with an emphasis on ordering necessary blood work today. The patient and I agreed upon pursuing these steps to manage his health carefully Orders: Orders Complete Blood Count Auto Diff Today E78.5 - Hyperlipidemia, unspecified, I10 - Essential (primary) hypertension Comprehensive Met. Panel Today E78.5 - Hyperlipidemia, unspecified, I10 - Essential (primary) hypertension Hemoglobin A1c Today E78.5 - Hyperlipidemia, unspecified, I10 - Essential (primary) hypertension Lipid Panel Today E78.5 - Hyperlipidemia, unspecified, I10 - Essential ( primary) hypertension TSH reflex Free T4 Today E78.5 - Hyperlipidemia, unspecified, I10 - Essential (primary) hypertension Vitamin D 25-OH Total Today E78.5 - Hyperlipidemia, unspecified, I10 - Essential (primary) hypertension Patient Instructions: - Buy a digital blood pressure cuff from the pharmacy today. - Measure and record your blood pressure at home every day for one week. - Keep track of all readings to discuss during our follow-up phone call next week. - If you begin feeling lightheaded or have any issues, reduce lisinopril back to the previous dose of 10 mg and inform us immediately. - Make a routine appointment to check your lipid panel in future visits. - Continue regular physical activity as it benefits your overall health.
[2024-12-08 08:53] VITALS: BP 180/82; PULSE 88; RESP 18; TEMP 36.3; O2SAT 97; BMI 25.2
--- OUTSIDE RECORDS SUMMARY | 2024-12-08 09:18 | XMS_ITS | Patient Health Record ---
Author Organization [facility] Address [address] [place] [address] Care Team Providers Care Human Services Care Specialist Name Role Phone Shahid (RETIRED) Perry DIA Primary Care Provide r Unavailable Richard Urban Unavailable [phone] Reason For Referral No Information Medications Medication SIG (Take, Route, Frequency, Duration) Notes Start Date End Date Status Doxazosin Mesylate 2 MG 1 tablet Orally Once a day Active Lisinopril 10 MG 1 tablet Orally Once a day Active metFORMIN HCl 500 MG 1/2 tablet with wanda ls Orally once a day Active Aspirin 81 MG 1 tablet Orally Once a day Active Pravastatin Sodium 40 MG 1 tablet Orally Once a day Active Centrum Silver 1 one tablet Orally on ce a day Active Problems Problem Type SNOMED Code ICD Code Onset Dates Problem Status W/U Status Risk Notes Problem [id number] Encounter for screening for malignant neoplasm of colon (Z12.11) Active confirmed Problem 578717374 History of adenomatous polyp of colon (Z86.010) Active confirmed Problem Screening for malignant neoplasm of rectum (912214598) Encounter for screening for malignant neoplasm of rectum (Z12.12) Active confirmed Plan Of Treatment No Information Insurance Providers Payer Name Payer Address Payer Phone Subscriber Number Group Number Insured Name Patient Relationship to Insured Coverage Start Date Coverage End Date MEDICARE OF [place] [address] [place] [id number] CANDIDA VICENTE Self - patient is the insured [facility] (REFERRAL REQUIRED) [address] [address] [place] [address] [id number] CANDIDA VICENTE Self - patient is the insured Medical (General) History Medical History History ICD Code Tubular adenomas removed in 2001, 2004 and 2010--the most recent colonoscopy in July 2010 revealed several small tubular adenomas, diverticulosis, and internal hemorrhoids Hypertension Hyperlipidemia NIDDM Denies [place],CVA,Lung disease,renal disease Surgical History Surgery Date(Month/Year) tonsillectomy
== END 2024-12-08 09:19 | disposition home or self-care (01) ==
PROVIDERS: PCP Student in an Organized Health Care Education/Training Program; Visit Provider Student in an Organized Health Care Education/Training Program
DX: I10 Essential (primary) hypertension (principal); E78.5 Hyperlipidemia, unspecified; K76.9 Liver disease, unspecified

== ENCOUNTER → 2024-12-08 08:44 | Outpatient (BNVA) | payer MEDICARE, SELFPAY | PROVIDERS: PCP Internal Medicine; Visit Provider Student in an Organized Health Care Education/Training Program | DX: I10 Essential (primary) hypertension (principal); E78.5 Hyperlipidemia, unspecified; K76.9 Liver disease, unspecified; Z79.899 Other long term (current) drug therapy | CPT/HCPCS: 99212 ==

== ENCOUNTER 2024-12-08 09:23 | Outpatient (REF) | payer MEDICARE, SELFPAY ==
[2024-12-08 10:50] LABS: MANUAL DIFF FLAG NO
[2024-12-08 10:56] LABS: Hematocrit 37.7 % (42.0-52.0); Hemoglobin 13.1 g/dl (14.0-18.0); Imm Gran Abs Auto 0.01 X10*3/uL (0.00-0.03); Imm Gran Pct Auto 0.2 % (0.0-0.4); Lymphocytes Absolute Auto 1.3 X10*3/uL (1.2-4.9); Mean Corpuscular HGB Conc 34.7 g/dl (31.0-36.0); Mean Corpuscular Hemoglobin 33.2 pg (27.0-33.0); Mean Corpuscular Volume 95.7 fL (80.0-98.0); NRBC Abs Auto 0.000 X10*3/uL (0.0-0.012); NRBC Pct Auto 0.0 /100WBC (0.0-0.2); Platelet Count 202 X10*3/uL (160-400); Red Blood Count 3.94 X10*6/uL (4.60-5.80); White Blood Count 5.8 X10*3/uL (4.8-10.8)
[2024-12-08 11:09] LABS: Hemoglobin A1C 138.9131 umol/L; Total Hemoglobin (HGBA1C) 3347.1169 umol/L
[2024-12-08 11:22] LABS: Alanine Aminotransferase 18 U/L (0-40); Albumin Level 4.4 g/dL (3.5-5.0); Alkaline Phosphatase 79 U/L (39-117); Anion Gap 10 (12-20); Aspartate Amino Transferase 29 U/L (5-37); Blood Urea Nitrogen 33 mg/dL (9-16); Calcium 8.5 mg/dL (8.4-10.2); Carbon Dioxide 24 mmol/L (22-29); Chloride 112 mmol/L (96-108); Cholesterol 154 mg/dL (<200); Estimated Glomerular Filt Rate 41; HDL Cholesterol 51 mg/dL (>40); Potassium 4.3 mmol/L (3.3-5.1); Sodium 142 mmol/L (135-145); Total Protein 7.0 g/dL (6.5-8.0); Triglycerides 72 mg/dL (<150)
== END 2024-12-08 09:24 | disposition home or self-care (01) ==
LOC: HO.10HDL 09:23
PROVIDERS: Visit Provider Student in an Organized Health Care Education/Training Program
DX: I10 Essential (primary) hypertension (principal); E78.5 Hyperlipidemia, unspecified; Z13.1 Encounter for screening for diabetes mellitus; Z13.21 Encounter for screening for nutritional disorder
CPT/HCPCS: 36415; 80053; 80061; 82306; 83036; 84443; 85025

== ENCOUNTER 2024-12-14 08:13 | Outpatient (AMB) | payer MEDICARE, SELFPAY ==
--- NOTE | 2024-12-14 08:31 | A.OFFPC_ITS ---
Intake Visit Reasons: 1 week f/u new bp cuff Allergies No Known Allergies Allergy (Verified 12/08/24 08:48) Tobacco use date assessed: 08/25/24 Dental Screening Dental Screen Date: 08/25/24 HPI HPI Comments History of Present Illness Details The patient is an 89-year-old male presenting with high blood pressure management. During our discussion, the patient noted that he has been experiencing elevated blood pressure readings at home, typically in the 150s to 160s range. These measurements were taken in the mornings, before his breakfast and medication. The patient expressed uncertainty about the process of monitoring his blood pressure after medication administration, which has not been part of his routine. He reported no associated symptoms such as headaches or chest pain. 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 He denied any discomfort or related problems. Despite the elevated blood pressure readings, the patient feels good overall and reported no significant changes in his health status. 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 - Continues to perform housework and out door activities. [facility] Medical History Nocturia Diabetes mellitus Elevated PSA Prostate cancer Surgical History History of prostate biopsy Family History (Updated 08/25/24 @ 15:26 by Yaz Fernandez MA) Mother No problems noted. Father No problems noted. Social History Housing: House Patient Tobacco Use Status: Never used Tobacco e-Cigarette/Vaping Use: Never Used service: Yes Current occupational status: retired Current occupational exposures/hazards: No Cognitive needs: No Hearing needs: Yes (bilateral hearing aids) Vision needs: No Questionnaire Thrive Questionnaire Date Thrive assessed: 08/25/24 SOLIS-7 AMB Questionnaire SOLIS-7 Date SOLIS - 7 assessed: 08/25/24 Source: Developed by Drs. Richard Oliva, Diana Valerio, Josh Suárez and colleagues, with an educational valerie from [employer]. Review of Systems Const Details: - Cardiovascular: Denies headaches, chest pain - General: Reports feeling good overall All systems reviewed & are unremarkable except as noted in HPI and below Physical exam (Primary Care) Tobacco/Smoking Status: Tobacco use Status Tobacco use date assessed 08/25/24 12/08/24 08:56 Patient Tobacco Use Status Never used Tobacco 12/08/24 08:56 e-Cigarette/Vaping Use Never Used 12/08/24 08:56 Thrive Assessment: Date of Thrive Assessment Date Thrive assessed 08/25/24 12/08/24 08:56 Telehealth Telehealth Telehealth Platform: Telephone Location of provider rendering services: practice address Location of patient: address on file Patient Identification confirmed using: Name, : Yes Telehealth method: voice only Patient verbally consented to treatment: Yes Patient verbally consented to billing insurance company: Yes Patient informed of any privacy concerns related to visit: Yes Minutes spent on Phone/Video with Pt.: 12 Coding Level of Care Code Tele Est Pt Level 4 (44693) Diagnoses Primary hypertension I10 Hypertension type: primary hypertension Assessment & Plan Assessment & Plan (1) Hypertension: Comment: - Discussed monitoring blood pressure both before and after medication to better assess effectiveness. - Pressures remain elevated at home with pressures over 150 - Addition of Amlodipine 2.5 mg to existing Lisinopril 10mg daily regimen. - Recommended follow-up in two weeks to evaluate blood pressure control and medication efficacy. Code(s): I10 - Essential (primary) hypertension Category: Medical Qualifiers: Hypertension type: primary hypertension Qualified Code(s): I10 - Essential (primary) hypertension Plan During the visit, I discussed with the patient the ongoing management of his essential hypertension. I highlighted the importance of monitoring blood pressure readings both before and after the administration of medication to better understand the effectiveness of the treatment. I explained the plan to add Amlodipine 2.5 mg to his existing medication regimen with Lisinopril, providing a rationale for the combination therapy to improve blood pressure control. The patient was informed of the plan to follow up in two weeks where further assessment of his blood pressure regulation will be conducted. The risks of uncontrolled hypertension, such as cardiovascular events, were reviewed, alongside the benefits of achieving optimal blood pressure levels. Patient Instructions: During the visit, I discussed with the patient the ongoing management of his essential hypertension. I highlighted the importance of monitoring blood pressure readings both before and after the administration of medication to better understand the effectiveness of the treatment. I explained the plan to add Amlodipine 2.5 mg to his existing medication regimen with Lisinopril, providing a rationale for the combination therapy to improve blood pressure control. The patient was informed of the plan to follow up in two weeks where further assessment of his blood pressure regulation will be conducted. The risks of uncontrolled hypertension, such as cardiovascular events, were reviewed, alongside the benefits of achieving optimal blood pressure levels.
--- OUTSIDE RECORDS SUMMARY | 2024-12-14 09:05 | XMS_ITS | Patient Health Record ---
Author Organization [facility] Address [address] [place] [address] Care Team Providers Care Corner Cutter Machine Operator Name Role Phone Shahid (RETIRED) Perry DIA Primary Care Provide r Unavailable Richard Urban Unavailable [phone] Reason For Referral No Information Medications Medication [...] Problem Status W/U Status Risk Notes Problem [id number] Encounter for screening for malignant neoplasm of colon (Z12.11) Active confirmed Problem 210072172 History of adenomatous polyp of colon (Z86.010) Active confirmed Problem Screening for malignant neoplasm of rectum (086129631) Encounter for screening for malignant neoplasm of rectum (Z12.12) Active confirmed Plan Of Treatment No Information Insurance Providers Payer Name Payer Address Payer Phone Subscriber Number Group Number Insured Name Patient Relationship to Insured Coverage Start Date Coverage End Date MEDICARE OF [employer] [address] [place] [id number] CANDIDA VICENTE Self - patient is the insured [facility] (REFERRAL REQUIRED) [address] [address] [place] [address] [phone] [id number] CANDIDA VICENTE Self - patient is the insured Medical (General) History Medical History History ICD Code Tubular adenomas removed in 2001, 2004 and 2010--the most recent colonoscopy in July 2010 revealed several small tubular adenomas, diverticulosis, and internal hemorrhoids Hypertension Hyperlipidemia NIDDM Denies [place],CVA,Lung disease,renal disease Surgical History Surgery Date(Month/Year) tonsillectomy
== END 2024-12-14 08:33 | disposition home or self-care (01) ==
LOC: HO.HMCHD 08:13
PROVIDERS: PCP Student in an Organized Health Care Education/Training Program; Visit Provider Student in an Organized Health Care Education/Training Program
DX: I10 Essential (primary) hypertension (principal)

== ENCOUNTER 2024-12-28 07:03 | Outpatient (AMB) | payer MEDICARE, SELFPAY ==
--- OUTSIDE RECORDS SUMMARY | 2024-12-28 07:05 | XMS_ITS | Patient Health Record ---
Author Organization [facility] Address [address] [place] [address] Care Team Providers Care Military Logistics Specialist Name Role Phone Shahid (RETIRED) Perry DIA Primary Care Provide r Unavailable Richard Urban Unavailable [phone] Reason For Referral No Information Medications Medication [...] Problem Status W/U Status Risk Notes Problem [id number] Encounter for screening for malignant neoplasm of colon (Z12.11) Active confirmed Problem 240474920 History of adenomatous polyp of colon (Z86.010) Active confirmed Problem Screening for malignant neoplasm of rectum (239888136) Encounter for screening for malignant neoplasm of rectum (Z12.12) Active confirmed Plan Of Treatment No Information Insurance Providers Payer Name Payer Address Payer Phone Subscriber Number Group Number Insured Name Patient Relationship to Insured Coverage Start Date Coverage End Date MEDICARE OF [employer] [address] [place] [id number] CANDIDA VICENTE Self - patient is the insured [facility] (REFERRAL REQUIRED) [address] [address] [place] [address] [id number] CANDIDA VICENTE Self - patient is the insured Medical (General) History Medical History History ICD Code Tubular adenomas removed in 2001, 2004 and 2010--the most recent colonoscopy in July 2010 revealed several small tubular adenomas, diverticulosis, and internal hemorrhoids Hypertension Hyperlipidemia NIDDM Denies [place],CVA,Lung disease,renal disease Surgical History Surgery Date(Month/Year) tonsillectomy
--- NOTE | 2024-12-28 07:55 | A.OFFPC_ITS ---
Intake Visit Reasons: 2 week f/u Bp's Allergies No Known Allergies Allergy (Verified 12/08/24 08:48) Medication List - Last Reconciled 12/28/24 by Emile Braun MD amlodipine 5 mg PO BID 30 days ascorbic acid (vitamin C) 1 g PO DAILY 90 days aspirin 81 mg PO DAILY doxazosin 2 mg PO DAILY latanoprost 0.005% 1 drp ophthalmic (eye) QPM lisinopril 10 mg PO DAILY methenamine hippurate 1 g PO DAILY 30 days pravastatin 40 mg PO DAILY prednisolone acetate 1% drps ophthalmic (eye) Tobacco use date assessed: 08/25/24 Dental Screening Dental Screen Date: 08/25/24 HPI HPI Comments History of Present Illness Details The patient is an 89-year-old male presenting with hypertension management. The patient reports persistently high blood pressure readings noted over the past two weeks. He states his blood pressure has been fluctuating, with lower numbers noted only briefly. This morning at 5 o'clock, his blood pressure was recorded at 171/90, and subsequently two hours later at 7 o'clock, it was 181/83. The patient describes adhering to his medication regimen, stating that he takes his antihypertensive medications before breakfast and monitors his blood pressure afterward. He also notes that his blood pressure readings have not decreased to desired levels, with the lowest recent upper number being 78 mmHg. Despite taking amlodipine at 2.5 mg, the blood pressure remains elevated. His medication regimen has been recently revised to increase the dosage of amlodipine. Medical History: - Essential Hypertension - Urinary symptoms Medications: - Lisinopril (for hypertension) - Amlodipine 2.5 mg (for hypertension) - Doxazosin (for urinary symptoms) - Pravastatin (for cholesterol managemen t) - Aspirin (for heart health) - Additional unspecified medication rela zakia to urology mentioned by the patient [facility] Medical History Nocturia Diabetes mellitus Elevated PSA Prostate cancer Surgical History History of prostate biopsy Family History (Updated 08/25/24 @ 15:26 by Yaz Fernadnez MA) Mother No problems noted. Father No problems noted. Social History Housing: House Patient Tobacco Use Status: Never used Tobacco e-Cigarette/Vaping Use: Never Used service: Yes Current occupational status: retired Current occupational exposures/hazards: No Cognitive needs: No Hearing needs: Yes (bilateral hearing aids) Vision needs: No Questionnaire Thrive Questionnaire Date Thrive assessed: 08/25/24 SOLIS-7 AMB Questionnaire SOLIS-7 Date SOLIS - 7 assessed: 08/25/24 Source: Developed by Drs. Richard Oliva, Diana Valerio, Josh Suárez and colleagues, with an educational valerie from [employer]. Review of Systems Const Details: - Cardiovascular: Reports elevated blood pressure. - Genitourinary: Reports use of medication for urinary symptoms. All systems reviewed & are unremarkable except as reviewed in HPI and above Physical exam (Primary Care) Tobacco/Smoking Status: Tobacco use Status Tobacco use date assessed 08/25/24 12/08/24 08:56 Patient Tobacco Use Status Never used Tobacco 12/08/24 08:56 e-Cigarette/Vaping Use Never Used 12/08/24 08:56 Thrive Assessment: Date of Thrive Assessment Date Thrive assessed 08/25/24 12/08/24 08:56 Coding Level of Care Code Tele Est Pt Level 4 (78646) Complex EM visit Add On G2211 Diagnoses Primary hypertension I10 Hypertension type: primary hypertension Hyperlipidemia, unspecified hyperlipidemia type E78.5 Hyperlipidemia type: unspecified BPH w urinary obs/LUTS N40.1; N13.8 Assessment & Plan Assessment & Plan (1) Hypertension: Comment: - Increase amlodipine dosage to 5 mg, twice daily, due to insufficient blood pressure control. - Continue current lisinopril regimen without changes at this time. - Plan for follow-up consultation in 4-6 weeks to evaluate treatment efficacy and make additional medication adjustments if needed. Code(s): I10 - Essential (primary) hypertension Category: Medical Qualifiers: Hypertension type: primary hypertension Qualified Code(s): I10 - Essential (primary) hypertension (2) Hyperlipidemia: Comment: - Continue Pravastatin 40mg Daily - Continue dietary changes Code(s): E78.5 - Hyperlipidemia, unspecified Category: Medical Qualifiers: Hyperlipidemia type: unspecified Qualified Code(s): E78.5 - Hyperlipidemia, unspecified (3) BPH w urinary obs/LUTS: Comment: - Symptoms well controlled - Continue Methenamine Hippurate 1mg Daily - Continue Doxazosin 2mg Daily Code(s): N40.1 - Benign prostatic hyperplasia with lower urinary tract symptoms; N13.8 - Other obstructive and reflux uropathy Category: Medical Plan I discussed with the patient the challenges he is facing in managing his high blood pressure. We reviewed his current blood pressure readings and noted that despite adherence to medication, his blood pressure remains elevated. I recommended increasing the dosage of amlodipine to better manage his blood pressure. We also reviewed his medication regimen, including lisinopril, and emphasized the importance of continuing regular blood pressure monitoring. Additionally, we discussed scheduling a follow-up appointment in 4-6 weeks to reevaluate his blood pressure control and make further adjustments if necessary. Medications: New amlodipine 5 mg PO BID 60 tabs 0RF 30 days Discontinued amlodipine Discontinued Reason: Doctor's Order 2.5 mg PO DAILY 30 tabs 0RF I10 - Essential (primary) hypertension Patient Instructions: - Take amlodipine 5 mg in the morning and 5 mg in the evening. - Continue taking lisinopril as prescribed. - Monitor blood pressure regularly and record readings. - Return in 4-6 weeks for a follow-up appointment. - If experiencing any new symptoms or side effects, seek medical advice promptly.
== END 2024-12-28 08:00 | disposition home or self-care (01) ==
LOC: HO.HMCHD 07:03
PROVIDERS: PCP Student in an Organized Health Care Education/Training Program; Visit Provider Student in an Organized Health Care Education/Training Program
DX: I10 Essential (primary) hypertension (principal); E78.5 Hyperlipidemia, unspecified; N40.1 Benign prostatic hyperplasia with lower urinary tract symptoms; N13.8 Other obstructive and reflux uropathy

== ENCOUNTER 2025-02-07 07:56 | Outpatient (AMB) | payer MEDICARE, SELFPAY ==
--- NOTE | 2025-02-07 07:58 | A.OFFPC_ITS ---
Vital Signs 02/07/25 08:03 Height 5 ft 4.57 in Weight 151 lb BMI 25.5 BP 164/70 H Blood Pressure Location Lt brachial Position Sitting Respiration 20 Pulse 109 H Pulse Source Pulse Oximeter Temp 97.8 F Temp Source Temporal Artery Scan Pulse Oximetry (%) 97 Oxygen Delivery Method Room Air Intake Visit Reasons: 6 week f/u bp's and meds Astro Technician Required: No Accompanied by: Self / Same As Patient Allergies No Known Allergies Allergy (Verified 02/07/25 07:58) Medication List - Last Reconciled 02/07/25 by Emile Braun MD amlodipine 5 mg PO BID 90 days ascorbic acid (vitamin C) 1 g PO DAILY 90 days aspirin 81 mg PO DAILY doxazosin 2 mg PO DAILY latanoprost 0.005% 1 drp ophthalmic (eye) QPM lisinopril 20 mg PO DAILY methenamine hippurate 1 g PO DAILY 30 days pravastatin 40 mg PO DAILY prednisolone acetate 1% drps ophthalmic (eye) Tobacco use date assessed: 08/25/24 Dental Screening Dental Screen Date: 08/25/24 HPI HPI Comments History of Present Illness Details The patient is an 89-year-old male presenting for management of uncontrolled hypertension. His home blood pressure readings have ranged from the 140s to the 170s, and he reports it is often high in the morning. His current antihypertensive regimen includes amlodipine 5 mg twice daily and lisinopril 10 mg daily. The patient has a history of stage 3B chronic kidney disease, which is noted to be stable. His baseline creatinine is approximately 1.5 and his eGFR is 41. He has a history of an enlarged prostate and is followed by a urologist, Dr. Friedman. He manages this condition with doxazosin 2 mg and performs self- catheterization four times a day. His PSA level was previously elevated. His other medical history includes hyperlipidemia, for which he takes pravastatin 40 mg, and a heart condition, for which he takes daily aspirin. 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 Medical History: - Hypertension - Chronic kidney disease, stage 3B - Benign prostatic hyperplasia, requirin g self-catheterization - Hyperlipidemia - History of heart condition Medications: - Amlodipine 5 mg twice a day for hypert ension - Aspirin for heart condition - Doxazosin 2 mg for enlarged prostate - Lisinopril 10 mg for hypertension - Pravastatin 40 mg for high cholesterol Diagnostic Results: - Labs: Baseline creatinine is approxima tely 1.5 with an eGFR of 41. - Labs: PSA was previously elevated. - Vitals: In-office blood pressure is 16 4/70 mmHg. Social History: - Exercise: The patient walks every day. - Employment: He volunteers at [employer] two days a week. [facility] Medical History (Updated 02/07/25 @ 08:16 by Emile Braun MD) Stage 3b chronic kidney disease (CKD) Nocturia Diabetes mellitus Elevated PSA Prostate cancer Surgical History History of prostate biopsy Family History (Updated 08/25/24 @ 15:26 by Yaz Fernandez MA) Mother No problems noted. Father No problems noted. Social History Housing: House Patient Tobacco Use Status: Never used Tobacco e-Cigarette/Vaping Use: Never Used service: Yes Current occupational status: retired Current occupational exposures/hazards: No Cognitive needs: No Hearing needs: Yes (bilateral hearing aids) Vision needs: No Questionnaire Thrive Questionnaire Date Thrive assessed: 08/25/24 SOLIS-7 AMB Questionnaire SOLIS-7 Date SOLIS - 7 assessed: 08/25/24 Source: Developed by Drs. Richard Oliva, Diana Valerio, Josh Suárez and colleagues, with an educational valerie from [employer]. Review of Systems Narrative - Constitutional: Denies nausea and vomiting. - Cardiovascular: Denies chest pain. - Respiratory: Denies shortness of breath. - Genitourinary: Reports normal urination. - Gastrointestinal: Reports normal bowel movements, denies diarrhea. - Neurological: Denies headaches or vision changes. All systems reviewed & are unremarkable except as reviewed in HPI and above Physical exam (Primary Care) Vital Signs: Last Vital Signs Temp 97.8 F 02/07/25 08:03 Pulse 109 H 02/07/25 08:03 Resp 20 02/07/25 08:03 BP 164/70 H 02/07/25 08:03 Pulse Ox 97 02/07/25 08:03 Oxygen Delivery Method Room Air 02/07/25 08:03 BMI result Body Mass Index 25.5 Tobacco/Smoking Status: Tobacco use Status Tobacco use date assessed 08/25/24 02/07/25 08:00 Patient Tobacco Use Status Never used Tobacco 02/07/25 08:00 e-Cigarette/Vaping Use Never Used 02/07/25 08:00 Thrive Assessment: Date of Thrive Assessment Date Thrive assessed 08/25/24 02/07/25 08:00 Narrative General: Alert and oriented, Well nourished, No acute distress. Eye: Pupils are equal, round and reactive to light, Intact accommodation, Extraocular movements are intact, Normal conjunctiva, Vision unchanged. HENT: Normocephalic, Atraumatic, Tympanic membranes are clear, Normal hearing, Oral mucosa is moist, No pharyngeal erythema, Ear canals patent. Respiratory: Lungs CTA bilaterally, No wheeze, Respirations are non-labored. Cardiovascular: Regular rate, Regular rhythm, S1 auscultated, S2 auscultated, No murmur, Good pulses equal in all extremities, Normal peripheral perfusion, No edema. Gastrointestinal: Soft, Non-tender, Non-distended, Normal bowel sounds, No organomegaly. Musculoskeletal: Normal range of motion, Normal strength, No tenderness, No swelling, No deformity, Normal gait. Integumentary: Warm, Dry, [place], Intact. Neurologic: Alert, Oriented, Normal sensory, Normal motor function, No focal defects, Cranial Nerves II-XII are grossly intact, Normal deep tendon reflexes. Psychiatric: Cooperative, Appropriate mood & affect, Normal judgment. Coding Level of Care Code Est Pt Level 4 (13556) Complex EM visit Add On G2211 Diagnoses Primary hypertension I10 Hypertension type: primary hypertension Stage 3b chronic kidney disease (CKD) N18.32 Hyperlipidemia, unspecified hyperlipidemia type E78.5 Hyperlipidemia type: unspecified BPH w urinary obs/LUTS N40.1; N13.8 Liver lesion K76.9 Assessment & Plan Assessment & Plan (1) Hypertension: Comment: - The patient's blood pressure is uncontrolled, with home readings from the 140s to 170s and an in-office reading of 164/70 mmHg, despite being on a maximum dose of amlodipine 5 mg twice daily. - The importance of controlling blood pressure to prevent further progression of his kidney disease was emphasized. - The plan is to increase his lisinopril dose from 10 mg to 20 mg daily. - He has been instructed to dispose of the old prescription and will start the new dose tomorrow morning. - A follow-up visit is scheduled in two weeks to re-evaluate his blood pressure. Code(s): I10 - Essential (primary) hypertension Category: Medical Qualifiers: Hypertension type: primary hypertension Qualified Code(s): I10 - Essential (primary) hypertension (2) Stage 3b chronic kidney disease (CKD): Comment: - This condition is stable, with a baseline creatinine of approximately 1.5 and an eGFR of 41. - The primary plan is to improve blood pressure control to protect kidney function. Code(s): N18.32 - Chronic kidney disease, stage 3b Category: Medical (3) Hyperlipidemia: Comment: - The patient is managed on pravastatin 40 mg. - He will continue his current medication Code(s): E78.5 - Hyperlipidemia, unspecified Category: Medical Qualifiers: Hyperlipidemia type: unspecified Qualified Code(s): E78.5 - Hyperlipidemia, unspecified (4) BPH w urinary obs/LUTS: Comment: - The patient is followed by a urologist and is managing his condition with doxazosin and self-catheterization four times a day. - He will continue with his current management and follow-up with urology as needed. Code(s): N40.1 - Benign prostatic hyperplasia with lower urinary tract symptoms; N13.8 - Other obstructive and reflux uropathy Category: Medical (5) Liver lesion: Comment: Had a discussion with patient's daughter about liver mass that was seen on imaging previously and plan for further evaluation however patient's daughter emphasized that she would not like any further investigation about the same given patient's age and not wanting to put him through any further intensive investigations. Code(s): K76.9 - Liver disease, unspecified Category: Medical Plan: Health Maintenance: - The patient walks every day for exercise. 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 - The patient monitors his blood pressure at home and keeps a record. - He is under the care of a urologist for management of his enlarged prostate. Patient was informed and verbally consented to the use of an ambient scribe for clinic note documentation during this visit. Plan I discussed with the patient that his blood pressure remains uncontrolled, with readings ranging from the 140s to 170s, despite being on a maximum dose of amlodipine. I explained the importance of better blood pressure control to prevent the progression of his stage 3B kidney disease. I informed him of the plan to increase his lisinopril from 10 mg to 20 mg and instructed him to dispose of the old prescription. We agreed on a follow-up appointment in two weeks to re-evaluate his blood pressure on the new regimen. Medications: New lisinopril 20 mg PO DAILY 30 tabs 0RF Discontinued lisinopril Discontinued Reason: Doctor's Order 10 mg PO DAILY 90 tabs 1RF Patient Instructions: - Stop taking your Lisinopril 10 mg pills and throw away any that are left. - A new prescription for Lisinopril 20 mg has been sent to your pharmacy. - Start taking one Lisinopril 20 mg pill each day, beginning tomorrow morning. - Continue taking all your other medications as you normally do. - Keep checking your blood pressure at home and writing down the numbers. - Please return for a follow-up appointment in two weeks.
--- OUTSIDE RECORDS SUMMARY | 2025-02-07 08:02 | XMS_ITS | Patient Health Record ---
Author Organization [facility] Address [address] [place] [address] Care Team Providers Care Tilt Tray Driver Name Role Phone Shahid (RETIRED) Perry DIA Primary Care Provide r Unavailable Richard Urban Unavailable [phone] Reason For Referral No Information Medications Medication [...] Problem Status W/U Status Risk Notes Problem Screening for malignant neoplasm of colon (849552944) Encounter for screening for malignant neoplasm of colon (Z12.11) Active confirmed Problem History of adenomatous polyp of colon (484365291) History of adenomatous polyp of colon (Z86.010) Active confirmed Problem Screening for malignant neoplasm of rectum (907446731) Encounter for screening for malignant neoplasm of rectum (Z12.12) Active confirmed Plan Of Treatment No Information Insurance Providers Payer Name Payer Address Payer Phone Subscriber Number Group Number Insured Name Patient Relationship to Insured Coverage Start Date Coverage End Date MEDICARE OF [place] [address] [place] [id number] CANDIDA VICENTE Self - patient is the insured [facility] (REFERRAL REQUIRED) [address] [address] [place] [address] [id number] CANDIDA VICENTE Self - patient is the insured Medical (General) History Medical History History ICD Code Tubular adenomas removed in 2001, 2004 and 2010--the most recent colonoscopy in July 2010 revealed several small tubular adenomas, diverticulosis, and internal hemorrhoids Hypertension Hyperlipidemia NIDDM Denies [place],CVA,Lung disease,renal disease Surgical History Surgery Date(Month/Year) tonsillectomy
[2025-02-07 08:03] VITALS: BP 164/70; PULSE 109; RESP 20; TEMP 36.6; O2SAT 97; BMI 25.5
== END 2025-02-07 08:16 | disposition home or self-care (01) ==
LOC: HO.HMCHD 07:57
PROVIDERS: PCP Student in an Organized Health Care Education/Training Program; Visit Provider Student in an Organized Health Care Education/Training Program
DX: I10 Essential (primary) hypertension (principal); N18.32 Chronic kidney disease, stage 3b; E78.5 Hyperlipidemia, unspecified; N40.1 Benign prostatic hyperplasia with lower urinary tract symptoms; N13.8 Other obstructive and reflux uropathy; K76.9 Liver disease, unspecified

== ENCOUNTER → 2025-02-07 07:56 | Outpatient (BNVA) | payer MEDICARE, SELFPAY | PROVIDERS: PCP Student in an Organized Health Care Education/Training Program; Visit Provider Student in an Organized Health Care Education/Training Program | DX: I12.9 Hypertensive chronic kidney disease with stage 1 through stage 4 chronic kidney disease, or unspecified chronic kidney disease (principal); N18.32 Chronic kidney disease, stage 3b; E78.5 Hyperlipidemia, unspecified; N40.1 Benign prostatic hyperplasia with lower urinary tract symptoms; N13.8 Other obstructive and reflux uropathy; K76.9 Liver disease, unspecified; Z79.82 Long term (current) use of aspirin; Z79.899 Other long term (current) drug therapy | CPT/HCPCS: 99212 ==

== ENCOUNTER 2025-02-22 09:24 | Outpatient (AMB) | payer MEDICARE, SELFPAY ==
--- NOTE | 2025-02-22 09:28 | A.OFFPC_ITS ---
Vital Signs 02/22/25 09:31 BP 178/68 H Blood Pressure Location Lt brachial Position Sitting Respiration 20 Pulse 103 H Pulse Source Pulse Oximeter Temp 97.4 F Temp Source Temporal Artery Scan Pulse Oximetry (%) 96 Oxygen Delivery Method Room Air Intake Visit Reasons: 2 wk bp follow up Manager Environmental Affairs Required: No Accompanied by: Self / Same As Patient Allergies No Known Allergies Allergy (Verified 02/22/25 09:28) Medication List - Last Reconciled 02/22/25 by Emile Braun MD amlodipine 5 mg PO BID 90 days amoxicillin 500 mg PO QID ascorbic acid (vitamin C) 1 g PO DAILY 90 days aspirin 81 mg PO DAILY doxazosin 2 mg PO DAILY latanoprost 0.005% 1 drp ophthalmic (eye) QPM lisinopril 20 mg PO DAILY methenamine hippurate 1 g PO DAILY 30 days pravastatin 40 mg PO DAILY prednisolone acetate 1% drps ophthalmic (eye) timolol maleate 0.5% 1 drp ophthalmic-Right Q12H Tobacco use date assessed: 08/25/24 Dental Screening Dental Screen Date: 08/25/24 HPI HPI Comments History of Present Illness Details History of Present Illness The patient is an 89 year old individual presenting for follow-up of uncontrolled hypertension. The patient reports persistently high blood pressure readings in the 150s-160s, which have not improved despite being on lisinopril 20 mg once daily and amlodipine 5 mg twice daily. A medication adjustment was made approximately two weeks ago, but it has not been effective in lowering the blood pressure. The patient's medical history is notable for stable stage 3B chronic kidney disease. The patient takes methenamine for bladder spasms, which the patient reports is effective, and self-catheterizes four times a day. The patient is also on pravastatin 40 mg for cholesterol, baby aspirin for heart disease prevention, and prednisone and timolol eye drops. Currently, the patient has an infected tooth and is taking amoxicillin, with a dental extraction scheduled for the following week. Medical History: - Hypertension - Chronic Kidney Disease, Stage 3B - Hyperlipidemia - Bladder spasms, managed with self-cath eterization - Infected tooth Medications: - Lisinopril 20 mg once daily for hypert ension - Amlodipine 5 mg twice daily for hypert ension - Baby aspirin for cardiovascular preven tion - Pravastatin 40 mg for hyperlipidemia - Prednisone eye drops - Timolol eye drops - Methenamine for bladder spasms - Amoxicillin for tooth infection Diagnostic Results: - Kidney function tests: Stable, consist ent with stage 3B kidney disease. Social History - The patient lives with good family sup port and plans to visit a granddaughter for Thanksgiving. 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 - The patient performs self-catheterizat ion four times a day. [facility] Medical History (Updated 02/22/25 @ 09:45 by Emile Braun MD) Infected tooth Stage 3b chronic kidney disease (CKD) Nocturia Diabetes mellitus Elevated PSA Prostate cancer Surgical History History of prostate biopsy Family History (Updated 08/25/24 @ 15:26 by Yaz Fernandez MA) Mother No problems noted. Father No problems noted. Social History (Reviewed 02/19/23 @ 08:27 by Pattie Guillen [facility]) Housing: House Patient Tobacco Use Status: Never used Tobacco e-Cigarette/Vaping Use: Never Used service: Yes Current occupational status: retired Current occupational exposures/hazards: No Cognitive needs: No Hearing needs: Yes (bilateral hearing aids) Vision needs: No Questionnaire Thrive Questionnaire Date Thrive assessed: 08/25/24 SOLIS-7 AMB Questionnaire SOLIS-7 Date SOLIS - 7 assessed: 08/25/24 Source: Developed by Drs. Richard Oliva, Diana Valerio, Josh Suárez and colleagues, with an educational valerie from [employer]. Review of Systems Narrative Review of Systems - Genitourinary: Reports urination is okay and that medication for bladder spasms is helping. - Dental: Reports an infected tooth. All systems reviewed & are unremarkable except as reviewed in HPI and above Physical exam (Primary Care) Vital Signs: Last Vital Signs Temp 97.4 F 02/22/25 09:31 Pulse 103 H 02/22/25 09:31 Resp 20 02/22/25 09:31 BP 178/68 H 02/22/25 09:31 Pulse Ox 96 02/22/25 09:31 Oxygen Delivery Method Room Air 02/22/25 09:31 Tobacco/Smoking Status: Tobacco use Status Tobacco use date assessed 08/25/24 02/22/25 09:33 Patient Tobacco Use Status Never used Tobacco 02/22/25 09:33 e-Cigarette/Vaping Use Never Used 02/22/25 09:33 Thrive Assessment: Date of Thrive Assessment Date Thrive assessed 08/25/24 02/22/25 09:33 Narrative Physical Exam General: +Alert and oriented, Well nourished, No acute distress. Eye: Pupils are equal, round and reactive to light, Intact accommodation, Extraocular movements are intact, Normal conjunctiva, Vision unchanged. HENT: Normocephalic, Atraumatic, Tympanic membranes are clear, Normal hearing, Oral mucosa is moist, No pharyngeal erythema, Ear canals patent. Respiratory: Lungs CTA bilaterally, No wheeze, Respirations are non-labored. Cardiovascular: Regular rate, Regular rhythm, S1 auscultated, S2 auscultated, No murmur, Good pulses equal in all extremities, Normal peripheral perfusion, No edema. Gastrointestinal: Soft, Non-tender, Non-distended, Normal bowel sounds, No organomegaly. Musculoskeletal: Normal range of motion, Normal strength, No tenderness, No swelling, No deformity, Normal gait. Integumentary: Warm, Dry, [place], Intact. Neurologic: Alert, Oriented, Normal sensory, Normal motor function, No focal defects, Cranial Nerves II-XII are grossly intact, Normal deep tendon reflexes. Psychiatric: Cooperative, Appropriate mood & affect, Normal judgment. Coding Level of Care Code Est Pt Level 4 (24246) Complex EM visit Add On G2211 Diagnoses Primary hypertension I10 Hypertension type: primary hypertension Infected tooth K04.7 Stage 3b chronic kidney disease (CKD) N18.32 BPH w urinary obs/LUTS N40.1; N13.8 Hyperlipidemia, unspecified hyperlipidemia type E78.5 Hyperlipidemia type: unspecified Assessment & Plan Assessment & Plan (1) Hypertension: Comment: - Blood pressure remains elevated in the 150s-160s despite the current regimen of lisinopril 20 mg daily and amlodipine 5 mg twice daily. - The plan is to increase lisinopril to 40 mg daily. - The patient has been advised to retain the 20 mg tablets and revert to that dose if experiencing symptoms of hypotension, such as lightheadedness. - A follow-up is scheduled in three weeks via phone to assess response to the medication change. Code(s): I10 - Essential (primary) hypertension Category: Medical Qualifiers: Hypertension type: primary hypertension Qualified Code(s): I10 - Essential (primary) hypertension (2) Infected tooth: Comment: - The patient is on amoxicillin for a tooth infection and has a scheduled extraction next week. - The importance of achieving better blood pressure control before the dental procedure was emphasized. Code(s): K04.7 - Periapical abscess without sinus Category: Medical (3) Stage 3b chronic kidney disease (CKD): Comment: - The condition is stable. - No changes to current management. Code(s): N18.32 - Chronic kidney disease, stage 3b Category: Medical (4) BPH w urinary obs/LUTS: Comment: - The patient is followed by a urologist and is managing his condition with doxazosin and self-catheterization four times a day. - He will continue with his current management and follow-up with urology as needed. Code(s): N40.1 - Benign prostatic hyperplasia with lower urinary tract symptoms; N13.8 - Other obstructive and reflux uropathy Category: Medical (5) Hyperlipidemia: Comment: - Managed with pravastatin 40 mg. - Continue current medication. Code(s): E78.5 - Hyperlipidemia, unspecified Category: Medical Qualifiers: Hyperlipidemia type: unspecified Qualified Code(s): E78.5 - Hyperlipidemia, unspecified Plan: Health Maintenance: - The patient takes a baby aspirin for primary cardiovascular disease prevention. Patient was informed and verbally consented to the use of an ambient scribe for clinic note documentation during this visit. Plan I discussed with the patient that their blood pressure remains high, in the 150s-160s, despite the current medication regimen. I explained the plan to increase the lisinopril dose from 20 mg to 40 mg. I advised the patient to keep the 20 mg lisinopril prescription as a backup and to switch back to it if they experience lightheadedness, which could indicate low blood pressure. I also emphasized that since the patient has a tooth extraction scheduled, it is important to have their blood pressure well-controlled before the procedure. We agreed to a follow-up appointment via telephone in three weeks to check on the blood pressure. The patient agreed with this plan. Medications: New lisinopril 40 mg PO DAILY 30 tabs 0RF Discontinued lisinopril Discontinued Reason: Doctor's Order 20 mg PO DAILY 30 tabs 0RF Patient Instructions: - A new prescription for Lisinopril 40 mg has been sent to your pharmacy. Discard your old Lisinopril 20 mg pills. - As a precaution, you can hold on to your Lisinopril 20 mg pills. If you start to feel lightheaded or dizzy on the new 40 mg dose, go back to taking the 20 mg dose and call our office. - Continue taking all your other medications as directed, including your amlodipine, pravastatin, baby aspirin, methenamine, and eye drops. - It is important that your blood pressure is well-controlled before your scheduled tooth removal next week. - We will schedule you for a follow-up appointment by phone in three weeks. Please let the front end software developer know what day is best for you to receive a call.
[2025-02-22 09:31] VITALS: BP 178/68; PULSE 103; RESP 20; TEMP 36.3; O2SAT 96
--- OUTSIDE RECORDS SUMMARY | 2025-02-22 12:38 | XMS_ITS | Patient Health Record ---
Author Organization [facility] Address [address] [place] [address] Care Team Providers Care Hand Bander Name Role Phone Shahid (RETIRED) Perry DIA Primary Care Provide r Unavailable Richard Urban Unavailable [phone] Reason For Referral No Information Medications Medication SIG (Take, Route, Frequency, Duration) Notes Start Date End Date Status Doxazosin Mesylate 2 MG Tablet 1 tablet Orally Once a day Active Lisinopril 10 MG Tablet 1 tablet Orally Once a day Active metFORMIN HCl 500 MG Tablet 1/2 tablet w ith meals Orally once a day Active Aspirin 81 MG Tablet Chewable 1 tablet Orally Once a day Active Pravastatin Sodium 40 MG Tablet 1 tablet Orally Once a day Active Centrum Silver 1 Tablet one tablet Orall y once a day Active Social History Social History Additional Details Category Social Info Options Details Miscellaneous: Marital status: Occupation: retired Section Notes: Nonsmoker; occ. beer Problems Problem Type SNOMED Code ICD Code Onset Dates Problem Status W/U Status Risk Notes Problem Screening for malignant neoplasm of colon ([id number]) Encounter for screening for malignant neoplasm of colon (Z12.11) Active confirmed Problem History of adenomatous polyp of colon (515137174) History of adenomatous polyp of colon (Z86.010) Active confirmed Problem Screening for malignant neoplasm of rectum (199868797) Encounter for screening for malignant neoplasm of rectum (Z12.12) Active confirmed Plan Of Treatment No Information Insurance Providers Payer Name Payer Address Payer Phone Subscriber Number Group Number Insured Name Patient Relationship to Insured Coverage Start Date Coverage End Date MEDICARE OF [place] [address] [place] [id number] LETIADAM TENORIOCANDIDA Self - patient is the insured [facility] (REFERRAL REQUIRED) [address] [address] [place], [place] [id number] CANDIDA VICENTE Self - patient is the insured Medical (General) History Medical History History ICD Code Tubular adenomas removed in 2001, 2004 and 2010--the most recent colonoscopy in July 2010 revealed several small tubular adenomas, diverticulosis, and internal hemorrhoids Hypertension Hyperlipidemia NIDDM Denies [place],CVA,Lung disease,renal disease Surgical History Surgery Date(Month/Year) tonsillectomy
== END 2025-02-22 09:45 | disposition home or self-care (01) ==
LOC: HO.HMCHD 09:25
PROVIDERS: PCP Student in an Organized Health Care Education/Training Program; Visit Provider Student in an Organized Health Care Education/Training Program
DX: I10 Essential (primary) hypertension (principal); K04.7 Periapical abscess without sinus; N18.32 Chronic kidney disease, stage 3b; N40.1 Benign prostatic hyperplasia with lower urinary tract symptoms; N13.8 Other obstructive and reflux uropathy; E78.5 Hyperlipidemia, unspecified

== ENCOUNTER → 2025-02-22 09:24 | Outpatient (BNVA) | payer MEDICARE, SELFPAY | PROVIDERS: PCP Student in an Organized Health Care Education/Training Program; Visit Provider Student in an Organized Health Care Education/Training Program | DX: I12.9 Hypertensive chronic kidney disease with stage 1 through stage 4 chronic kidney disease, or unspecified chronic kidney disease (principal); N18.32 Chronic kidney disease, stage 3b; K04.7 Periapical abscess without sinus; N40.1 Benign prostatic hyperplasia with lower urinary tract symptoms; N13.8 Other obstructive and reflux uropathy; N32.89 Other specified disorders of bladder; E78.5 Hyperlipidemia, unspecified | CPT/HCPCS: 99212 ==